=== PATIENT | male | born 1965 | race African-American/Black ===

== ENCOUNTER 2018-02-18 20:16 | Inpatient (IN) | payer OTHER ==
[2018-02-18 21:05] VITALS: BMI 20.5
--- NOTE | 2018-02-18 22:03 | HP ---
CIWA Score - CIWA Score Nausea/Vomitin-Mild Nausea/No Vomiting Muscle Tremors: 1-None Visible, but [place] Anxiety: 1-Mildly Anxious Agitation: 0-Normal Activity Paroxysmal Sweats: 3 Orientation: 0-Oriented Tacttile Disturbances: 3-Moderate Itch/Numb/Burn Auditory Disturbances: 0-None Visual Disturbances: 0-None Headache: 4-Moderately Severe CIWA-Ar Total Score: 13 Admission [facility] Chief Complaint: C/O WITHDRAWAL SX'S FROM ALCOHOL ABSTINENCE. SEEKING DETOX History of Present Illness: 52 Y.O. MALE WITH ALCOHOLISM HERE FOR DETOX. CLIENT IS REFERRED BY A WORK PROGRAM CALLED [employer]. HE REPORTS THIS IS HIS FIRST TIME IN AN INPATIENT TXMENT. HE ALSO DENIES OUTPATIENT TXMENT. C/O WITHDRAWAL SX'S. CIWA 13. REPORTS LONGEST STERLING TIME 2 YEARS. REPORTS HX/O AVH CURRENTLY ON MEDICATION MGMT. PRESENTLY DENIES ACTIVE EPISODES.HE ALSO REPORTS HX/O SEIZURES LAST EPISODE FEW YEARS AGO R/T ALCOHOL WITHDRAWAL, BLACK OUTS.HX/O SI LAST ATTEMPT 5 YEARS AGO BY CUTTING WRIST. PRESENTLY DENIES SUCH THOUGHTS HE REPORTS THAT HE IS PRESENTLY HOMELESS. PMHX- HEP B, HTN, HEART MURMUR, OA, DM, COLITIS, ANEMIA PSYCH- DEPRESSION, BIPOLAR, SCHIZOPHRENIA, ECZEMA Exam Limitations: No Limitations - Ebola screening Have you traveled outside of the country in the last 21 days: No (N) Have you had contact with anyone from an Ebola affected area: No Have you been sick,other than usual withdrawal symptoms: No Do you have a fever: No - Review of Systems Constitutional: Chills, Loss of Appetite, Malaise, Night Sweats, Changes in sleep, Unintentional Wgt. Loss EENT: reports: Recent change in vision (NEEDS READING GLASSES), Dental Problems (MISSING TEETH) Respiratory: reports: No Symptoms reported Cardiac: reports: No Symptoms Reported GI: reports: Constipated (LAST BM 1 WEEK AGO), Nausea, Poor Appetite, Poor Fluid Intake : reports: No Symptoms Reported Musculoskeletal: reports: Back Pain (R/T OA), Joint Pain (R/T OA), Neck Pain (R/ T OA) Integumentary: reports: Rash (ECZEMAS) Neuro: reports: Headache (MIGRAINES), Seizure (HX/O R/T WEITHDRAWAL), Tremors (R /T WITHDRAWAL) Endocrine: reports: Other (HX/O DM) Hematology: reports: No Symptoms Reported Psychiatric: reports: Depressed, other (BIPOALR, SCHIZOPHRENIA) Other Systems: Reviewed and Negative Patient History - Patient Medical History Hx Anemia: Yes Hx Asthma: No Hx Chronic Obstructive Pulmonary Disease (COPD): Yes (BRONCHITIS) Hx Cancer: No Hx Cardiac Disorders: Yes (MURMUR) Hx Congestive Heart Failure: No Hx Hypertension: Yes Hx Hypercholesterolemia: Yes Hx Pacemaker: No HX Cerebrovascular Accident: No Hx Seizures: Yes (ETOH WITHDRAWAL) Hx Dementia: No Hx Diabetes: Yes Hx Gastrointestinal Disorders: Yes (COLITIS) Hx Liver Disease: Yes (ELEVATED ENZYMES/ HEP B TREATED) Hx Genitourinary Disorders: No Hx Sexually Transmitted Disorders: No Hx Renal Disease (ESRD): No Hx Thyroid Disease: No Hx Human Immunodeficiency Virus (HIV): No Hx Hepatitis C: No Hx Depression: Yes Hx Suicide Attempt: Yes (LAST ATTMEPT 5 YEARS AGO BY CUTTING WRIST) Hx Bipolar Disorder: Yes Hx Schizophrenia: Yes - Patient Surgical History Past Surgical History: No - PPD History Previous Implant?: Yes Documented Results: Negative w/o proof Implanted On Prior [facility] Admission?: No PPD to be Administered?: Yes - Smoking Cessation Smoking history: Current every day smoker Have you smoked in the past 12 months: Yes Aproximately how many cigarettes per day: 10 Cigars Per Day: 0 Hx Chewing Tobacco Use: No Initiated information on smoking cessation: Yes 'Breaking Loose' booklet given: 02/18/18 - Substance & Tx. History Hx Alcohol Use: Yes Hx Substance Use: Yes Substance Use Type: Alcohol, Cocaine, Marijuana Hx Substance Use Treatment: No - Substances Abused BEER Route: Oral Frequency: Daily Amount used: 12 CANS- 12 OZ Age of first use: 10 Date of Last Use: 02/18/18 THC Route: Smoking Frequency: Daily Amount used: 2 EIGHT BALLS Age of first use: 6 Date of Last Use: 02/18/18 COCAINE Route: Smoking Frequency: 3-6 times per week Amount used: 1 GM Age of first use: 20 Date of Last Use: 02/18/18 Family Disease History - Family Disease History Family Disease History: Heart Disease: Father (DRUG ADDICT, HTN), Other: Father , Mother (SCHIZOPHRENIA) Admission Physical Exam BHS - Vital Signs Vital Signs: Vital Signs - 24 hr 02/18/18 21:02 Temperature 98.1 F Pulse Rate 90 Respiratory 18 Rate Blood Pressure 157/87 - Physical General Appearance: Yes: Appropriately Dressed, Thin, Tremorous HEENTM: Yes: EOMI, Normocephalic, Normal Voice, CHAPITO, Pharynx Normal, Other ( POOR DENTITION) Respiratory: Yes: Chest Non-Tender, No Respiratory Distress, No Accessory Muscle Use, Rhonchi Neck: Yes: No masses,lesions,Nodules, Supple, Trachea in good position Breast: Yes: Breast Exam Deferred Cardiology: Yes: Regular Rhythm, Regular Rate, S1, S2 Abdominal: Yes: Normal Bowel Sounds, Non Tender, Flat, Soft Genitourinary: Yes: Other (NO C/O) Back: Yes: Normal Inspection Musculoskeletal: Yes: full range of Motion, Gait Steady Extremities: Yes: Normal Range of Motion, Non-Tender, Tremors (FELT), Other ( DIRT FINGER NAILS UNKEPT) Neurological: Yes: Fully Oriented, Alert, Motor Strength 5/5, Depressed Affect Integumentary: Yes: Warm Lymphatic: Yes: Within Normal Limits - Diagnostic (1) Alcohol dependence with uncomplicated withdrawal Current Visit: Yes Status: Acute (2) HTN (hypertension) Current Visit: Yes Status: Suspected Qualifiers: Hypertension type: essential hypertension Qualified Code(s): I10 - Essential (primary) hypertension Comment: NO MED MGMT (3) Diabetes Current Visit: Yes Status: Suspected Qualifiers: Diabetes mellitus type: type 2 Comment: NO MED MGMT (4) History of anemia Current Visit: Yes Status: Suspected (5) History of hepatitis B Current Visit: Yes Status: Resolved (6) Colitis Current Visit: Yes Status: Suspected (7) Murmur Current Visit: Yes Status: Suspected (8) Primary generalized (osteo)arthritis Current Visit: Yes Status: Chronic (9) Depression Current Visit: Yes Status: Suspected (10) Bipolar 1 disorder Current Visit: Yes Status: Suspected (11) Schizophrenia Current Visit: Yes Status: Suspected (12) Constipation Current Visit: Yes Status: Acute (13) Eczema Current Visit: Yes Status: Chronic Qualifiers: Eczema type: unspecified Qualified Code(s): L30.9 - Dermatitis, unspecified Cleared for Admission BHS - Detox or Rehab S Level of Care: Medically Managed Detox Regimen/Protocol: Librium Claeared for Rehab Admission: No BHS Breath Alcohol Content Breath Alcohol Content: 0 Urine Drug Screen - Results Drug Screen Negative: No Urine Drug Screen Results: THC-Marijuana, TIRSO-Cocaine
[2018-02-18] MEDS ORDERED: MAG HYDROX/AL HYDROX/SIMETH 30 ML UNIT-DOSE CUP PO PRN (22:25)
[2018-02-18] MEDS ORDERED: MAGNESIUM CITRATE 300 ML BOTTLE PO PRN (22:25)
[2018-02-18] MEDS ORDERED: hydrOXYzine PAMOATE 50 MG CAPSULE (FP) PO PRN (22:25)
[2018-02-18] MEDS ORDERED: chlordiazePOXIDE HCL 25 MG CAPSULE PO PRN (22:25)
[2018-02-18] MEDS ORDERED: ACETAMINOPHEN 325 MG TABLET (FP) PO PRN (22:25)
[2018-02-18] MEDS ORDERED: NICOTINE POLACRILEX 2 MG GUM BC PRN (22:25)
[2018-02-18] MEDS ORDERED: LOPERAMIDE HCL 2 MG CAPSULE PO PRN (22:25)
[2018-02-18] MEDS ORDERED: MAGNESIUM HYDROX 2400MG/30ML ORAL SUSPENSION 30 ML CUP PO PRN (22:25)
[2018-02-18] MEDS ORDERED: P-EPHED 60MG/TRIPROLIDI 2.5MG TABLET PO PRN (22:25)
[2018-02-19] MEDS: MENTHOL/PHENOL 1 EACH UD MM PRN (00:35)
[2018-02-19] MEDS: guaiFENesin/D-METHORPHAN HB 10 ML UNIT-DOSE CUPS PO PRN (00:35)
[2018-02-19] MEDS: MELATONIN 5 MG TABLETS PO PRN (00:36)
[2018-02-19] MEDS: chlordiazePOXIDE HCL 25 MG CAPSULE PO SCH ×5 (00:54→22:39)
[2018-02-19] MEDS: PRENATAL VITAMINS W/ FOLIC ACID TABLET (FP) PO SCH (10:08)
[2018-02-19] MEDS: NICOTINE 21 MG/24 HOURS TOPICAL PATCH TD SCH (10:08)
[2018-02-19 10:25] LABS: HEMATOCRIT 30.7 % (35.4-49); HEMOGLOBIN 10.6 GM/dL (11.7-16.9); MCH 32.4 pg (25.7-33.7); MCHC 34.4 g/dl (32.0-35.9); MEAN CELL VOLUME 94.2 fl (80-96); MEAN PLT VOLUME 8.7 fl (7.5-11.1); PLATELET COUNT 205 K/MM3 (134-434); RBC 3.26 M/mm3 (4.00-5.60); RDW 14.9 % (11.9-15.9); WHITE BLOOD COUNT 6.9 K/mm3 (4.0-10.0)
[2018-02-19 10:57] LABS: ALBUMIN 3.3 g/dl (3.4-5.0); ALK PHOS 85 U/L (45-117); ANION GAP 9 MMOL/L (8-16); BILIRUBIN,TOTAL 0.4 mg/dL (0.2-1); BLOOD UREA NITROGEN 30 mg/dL (7-18); CALCIUM 8.5 mg/dL (8.5-10.1); CHLORIDE 110 mmol/L (98-107); CO2 22 mmol/L (21-32); CREATININE 1.8 mg/dL (0.55-1.3); GLUCOSE,RANDOM 87 mg/dL (74-106); POTASSIUM 4.7 mmol/L (3.5-5.1); SGOT/AST 25 U/L (15-37); SGPT/ALT 31 U/L (13-61); SODIUM 141 mmol/L (136-145); TOT PROT 6.2 g/dl (6.4-8.2)
--- NOTE | 2018-02-19 14:31 | PN ---
[facility] CIWA - CIWA Score Nausea/Vomitin-No Nausea/No Vomiting Muscle Tremors: 2 Anxiety: 3 Agitation: 3 Paroxysmal Sweats: 3 Orientation: 0-Oriented Tacttile Disturbances: 1-Very Mild Itch/Numbness Auditory Disturbances: 0-None Visual Disturbances: 0-None Headache: 1-Very Mild CIWA-Ar Total Score: 13 S Progress Note (SOAP) Subjective: dry skin, interrupted sleep, anxious Objective: 02/19/18 14:29 Vital Signs Temperature 97.4 F L 02/19/18 14:20 Pulse Rate 67 02/19/18 14:20 Respiratory Rate 18 02/19/18 14:20 Blood Pressure 153/90 02/19/18 14:20 O2 Sat by Pulse Oximetry (%) Laboratory Last Values WBC 6.9 K/mm3 (4.0-10.0) 02/19/18 08:00 RBC 3.26 M/mm3 (4.00-5.60) L 02/19/18 08:00 Hgb 10.6 GM/dL (11.7-16.9) L 02/19/18 08:00 Hct 30.7 % (35.4-49) L 02/19/18 08:00 MCV 94.2 fl (80-96) 02/19/18 08:00 MCH 32.4 pg (25.7-33.7) 02/19/18 08:00 MCHC 34.4 g/dl (32.0-35.9) 02/19/18 08:00 RDW 14.9 % (11.9-15.9) 02/19/18 08:00 Plt Count 205 K/MM3 (134-434) 02/19/18 08:00 MPV 8.7 fl (7.5-11.1) 02/19/18 08:00 Sodium 141 mmol/L (136-145) 02/19/18 08:00 Potassium 4.7 mmol/L (3.5-5.1) 02/19/18 08:00 Chloride 110 mmol/L (98-107) H 02/19/18 08:00 Carbon Dioxide 22 mmol/L (21-32) 02/19/18 08:00 Anion Gap 9 MMOL/L (8-16) 02/19/18 08:00 BUN 30 mg/dL (7-18) H 02/19/18 08:00 Creatinine 1.8 mg/dL (0.55-1.3) H 02/19/18 08:00 Creat Clearance w eGFR 39.52 (>60) 02/19/18 08:00 POC Glucometer 108 UNITS (80-120) 02/19/18 07:21 Random Glucose 87 mg/dL (74-106) 02/19/18 08:00 Calcium 8.5 mg/dL (8.5-10.1) 02/19/18 08:00 Total Bilirubin 0.4 mg/dL (0.2-1) 02/19/18 08:00 AST 25 U/L (15-37) 02/19/18 08:00 ALT 31 U/L (13-61) 02/19/18 08:00 Alkaline Phosphatase 85 U/L (45-117) 02/19/18 08:00 Total Protein 6.2 g/dl (6.4-8.2) L 02/19/18 08:00 Albumin 3.3 g/dl (3.4-5.0) L 02/19/18 08:00 RPR Titer Nonreactive (NONREACTIVE) 02/19/18 08:00 Ao x3 no distress no adventitious breathe sounds skin intact, dry full ROM ambulatory Assessment: 02/19/18 14:30 withdrawal sx Plan: increase po fluids continue detox continue to monitor
--- NOTE | 2018-02-19 15:15 | CONSULT ---
[facility] Psychiatric Consult - Data Date of interview: 02/19/18 Admission source: [facility]. Referred by [facility]. Identifying data: First admission to [facility] for this 52 y/o AA male seeking detoxification treatment, at [address] [place] [address], for alcohol, cocaine and cannabis dependence. Patient is single without dependents, homeless, unemployed and supported on SSI/SSD benefits. Substance Abuse History: Confirmed by the patient in this interview. Details in current [facility] report : Smoking history: Current every day smoker. Have you smoked in the past 12 months: Yes. Aproximately how many cigarettes per day: 10. Cigars Per Day: 0. Hx Chewing Tobacco Use: No. Initiated information on smoking cessation: Yes. 'Breaking Loose' booklet given: 02/18/18. - Substance & Tx. History. Hx Alcohol Use: Yes. Hx Substance Use: Yes. Substance Use Type : Alcohol, Cocaine, Marijuana. Hx Substance Use Treatment: No. - Substances Abused. BEER. Route: Oral. Frequency: Daily. Amount used: 12 CANS- 12 OZ. Age of first use: 10. Date of Last Use: 02/18/18. THC. Route: Smoking. Frequency: Daily. Amount used: 2 EIGHT BALLS. Age of first use: 6. Date of Last Use: 02/18/18. COCAINE. Route: Smoking. Frequency: 3-6 times per week. Amount used: 1 GM. Age of first use: 20. Date of Last Use: 02/18/18 Medical History: Anemia, eczema, colitis, hypertension, hepatitis B, arthritis, heart murmur and diabetes mellitus. Reported allergy to metformin. Psychiatric History: Patient admits to one psychiatric hospitalization ([facility]). Diagnosed with Bipolar Disorder. Prescribed a regimen of haldol + depakote + seroquel + trazodone (doses not recalled). Last taken " more than a week ago ". No current contact with psychiatric OPD care providers. " I have refills for three months. " Mr Horn reports one suicide attempt via wrist-cutting (six years ago). Physical/Sexual Abuse/Trauma History: Patient denies. Additional Comment: Urine Drug Screen Results: THC-Marijuana, TIRSO-Cocaine. Noted. Mental Status Exam - Mental Status Exam Alert and Oriented to: Time, Place, Person Cognitive Function: Grossly Intact Patient Appearance: Unkempt, Disheveled Mood: Nervous, Withdrawn Affect: Mood Congruent, Constricted Patient Behavior: Fatigued, Cooperative Speech Pattern: Clear Voice Loudness: Normal Thought Process: Goal Oriented Thought Disorder: Not Present Hallucinations: Denies Suicidal Ideation: Denies Homicidal Ideation: Denies Insight/Judgement: Poor Sleep: Poorly, Difficulty falling asleep Appetite: Good Muscle strength/Tone: Normal Gait/Station: Other (not observed ; patient stayed in bed for entire interview) Psychiatric Findings - Problem List ([place] 1, 2,3) (1) Alcohol dependence with uncomplicated withdrawal Current Visit: Yes Status: Acute (2) Cannabis dependence Current Visit: Yes Status: Chronic (3) Cocaine dependence Current Visit: Yes Status: Chronic (4) Nicotine dependence Current Visit: Yes Status: Chronic (5) Substance induced mood disorder Current Visit: Yes Status: Acute (6) Schizoaffective disorder Current Visit: Yes Status: Chronic (7) Insomnia Current Visit: Yes Status: Acute (8) Non-compliant patient Current Visit: Yes Status: Chronic - Initial Treatment Plan Initial Treatment Plan: Psychoeducation. Sleep hygiene. Detoxification. Psychotherapy (group,individual and supportive). AA/NA meeting recommended. Medications (with the exception of detox protocol agents) are on hold pending verification (no pharmacy listed on file). Observation.
[2018-02-19] MEDS: DOCUSATE SODIUM 100 MG CAPSULE (FP) PO SCH (22:40)
[2018-02-19] MEDS: THIAMINE HCL 100 MG TABLET (FP) PO SCH (22:40)
[2018-02-20] MEDS: chlordiazePOXIDE HCL 25 MG CAPSULE PO SCH ×3 (06:10→17:41)
[2018-02-20] MEDS: PRENATAL VITAMINS W/ FOLIC ACID TABLET (FP) PO SCH (10:19)
[2018-02-20] MEDS: NICOTINE 21 MG/24 HOURS TOPICAL PATCH TD SCH (10:19)
--- NOTE | 2018-02-20 11:36 | EKG ---
Test Reason : Blood Pressure : / mmHG Vent. Rate : 079 BPM Atrial Rate : 079 BPM P-R Int : 128 ms QRS Dur : 074 ms QT Int : 372 ms P-R-T Axes : 074 -39 053 degrees QTc Int : 426 ms NORMAL SINUS RHYTHM LEFT AXIS DEVIATION ABNORMAL ECG NO PREVIOUS ECGS AVAILABLE Confirmed by TAM CASTORENA MD ([id number]) on 02/20/2018 11:36:13 AM Referred By: Confirmed By:TAM CASTORENA MD
[2018-02-20] MEDS: IBUPROFEN 400 MG TABLET (FP) PO PRN (14:15)
--- NOTE | 2018-02-20 15:20 | PN ---
S CIWA - CIWA Score Nausea/Vomitin Muscle Tremors: 3 Anxiety: 4-Mod. Anxious/Guarded Agitation: 4-Moderately Restless Paroxysmal Sweats: 2 Orientation: 0-Oriented Tacttile Disturbances: 0-None Auditory Disturbances: 0-None Visual Disturbances: 0-None Headache: 0-None Present CIWA-Ar Total Score: 15 BHS Progress Note (SOAP) Subjective: Tremor, chills, interrupted sleep; c/o constipation (no bm x 1 week and severe abdominal pain). Patient stated he has ulcerative colitis and usually received morphine IV. As per patient, he is not on any medication for ulcerative colitis. Patient reports pmhx of DMT2, HTN, Hepatitis B, Nicotine dependence, alcohol dependence, cocaine dependence;pphx of depression, bipolar disorder and schizophrenia. Patient has been non compliant with medications. Patient reports allergy to metformin (rash and sweating). Objective: 02/20/18 15:19 Last Vital Signs Temp Pulse Resp BP Pulse Ox 97.6 F 90 18 189/128 H 02/20/18 13:50 02/20/18 14:55 02/20/18 13:50 02/20/18 14:55 B/P elevated most likely due to pain and anxiety PE: Resp: lungs ctab/l, no added breath sounds CV: rrr, s1s2+ Abd: + bs x 4, no rebound tenderness, soft, flat, nd Neuro: A/A/Ox3, noted to be groaning and twisting Laboratory Tests 02/18/18 02/19/18 02/19/18 23:14 07:21 08:00 WBC 6.9 RBC 3.26 L Hgb 10.6 L Hct 30.7 L MCV 94.2 MCH 32.4 MCHC 34.4 RDW 14.9 Plt Count 205 MPV 8.7 Sodium Potassium Chloride Carbon Dioxide Anion Gap BUN Creatinine Creat Clearance w eGFR POC Glucometer 230 108 Random Glucose Calcium Total Bilirubin AST ALT Alkaline Phosphatase Total Protein Albumin RPR Titer 02/19/18 02/19/18 02/20/18 08:00 08:00 06:10 WBC RBC Hgb Hct MCV MCH MCHC RDW Plt Count MPV Sodium 141 Potassium 4.7 Chloride 110 H Carbon Dioxide 22 Anion Gap 9 BUN 30 H Creatinine 1.8 H Creat Clearance w eGFR 39.52 POC Glucometer 93 Random Glucose 87 Calcium 8.5 Total Bilirubin 0.4 AST 25 ALT 31 Alkaline Phosphatase 85 Total Protein 6.2 L Albumin 3.3 L RPR Titer Nonreactive Labs reviewed: ARTURO noted Assessment: 02/20/18 15:20 Withdrawal symptoms Patient c/o constipation x 1 week and severe abdominal pain due to ulcerative colitis, noted with ARTURO Plan: Continue detox Constipation x 1 week and severe abdominal pain due to ulcerative colitis, noted with ARTURO: transferred to [facility] via EMS for further evaluation. Report provided to Dr. Bridges by BRIDGET Reich (feature writer called ER and was told that the already took report and is expecting the patient).
[2018-02-20 17:32] LABS: URINE APPEARANCE CLEAR; URINE BILIRUBIN NEGATIVE (<2.0 mg/dL); URINE COLOR LTYELLOW; URINE GLUCOSE (UA) NEGATIVE (NEGATIVE); URINE KETONE NEGATIVE (NEGATIVE); URINE LEUK ESTERASE NEGATIVE (NEGATIVE); URINE NITRITE NEGATIVE (NEGATIVE); URINE PROTEIN NEGATIVE (NEGATIVE); URINE UROBILINOGEN NEGATIVE mg/dL (0.2-1.0)
[2018-02-20] MEDS: DOCUSATE SODIUM 100 MG CAPSULE (FP) PO SCH (22:43)
[2018-02-20] MEDS: THIAMINE HCL 100 MG TABLET (FP) PO SCH (22:43)
[2018-02-20] MEDS: chlordiazePOXIDE 5 MG CAPSULE PO SCH (23:21)
[2018-02-21] MEDS ORDERED: cloNIDine HCL 0.1 MG TABLET PO ONE (00:39)
[2018-02-21] MEDS: chlordiazePOXIDE 5 MG CAPSULE PO SCH ×3 (06:08→17:59)
--- NOTE | 2018-02-21 08:08 | PN ---
[facility] Progress Note Note: returns after er eval aT [facility] FOR ABD PAIN STOOL NOTED IN COLON LACTULOSE GIVEN. P- LACTULOSE 20 GM DAILY X3 DAYS MONITOR/ HOLD FOR LOOSE STOOL Medical Decision Making - Medical Decision Making 02/20/18 20:05 Endorsed to me to follow CT scan and disposition. Patient seen and evaluated requesting to have a sandwich. 02/20/18 21:42 Patient Full Name: ARAM DUMONT Patient Accession No: [id number] Patient : 1965 Reason for Exam: r/o colitis Addenda Reason: Dr. Leiva on the line Referring Physician: JOSUE HU Patient Name: TIM CHIU THIS IS A PRELIMINARY REPORT FROM [facility] EXAM: CT abdomen and pelvis without contrast IMAGES:[id number] DATE OF EXAM: 2018-02-20 19:07:54 REASON FOR EXAM: Rule out colitis COMPARISON: None Findings: 3-4 mm nodules in the right middle lobe. Mild atelectasis and scarring in lung bases. No pleural effusions. Small hiatal hernia. The liver, gallbladder, pancreas, adrenal glands, and spleen are grossly unremarkable. Faint small left renal cyst. Punctate 1 mm nonobstructing left renal calcification. No ureteral calculi or hydronephrosis. No AAA. Moderate stool in the colon. No obvious colon wall thickening or inflammatory changes to suggest colitis. No evidence for diverticulitis, small bowel obstruction, or free air. Part of a normal appendix with intraluminal gas is suspected on axial images 84- 93 and coronal images 38-55. One or more of the following dose reduction techniques were used: automated exposure control, adjustment of the mA and/or kV according to patient size, use of iterative reconstructive technique. THIS DOCUMENT HAS BEEN ELECTRONICALLY SIGNED Chu Mcgrath MD 02/20/2018 21:09 B[place]O Love Please call Imaging Family Member Caretaker [phone] with questions. INTERPRETING RADIOLOGIST: Chu Mcgrath MD Electronically Signed: Feb 20, 2018 09:11PM EST CT scan report discussed with the patient as above. Patient tolerating by mouth, ate sandwich and juice without complications. Will transfer to [facility]. 02/20/18 22:07 Patient given lactulose 30 g by mouth. *DC/Admit/Observation/Transfer Diagnosis at time of Disposition: Abdominal pain Qualifiers: Abdominal location: unspecified location Qualified Code(s): R10.9 - Unspecified abdominal pain Constipation Qualifiers: Constipation type: unspecified constipation type Qualified Code(s): K59.00 - Constipation, unspecified - Discharge Dispostion Disposition: TRANSFER [facility] CARE/OTHER HOSP - Referrals - Patient Instructions - Post Discharge Activity - Transfer to Acute Care Facility Receiving Facility: Other hosp. not listed Transfer comment: 02/20/18 22:10 Transferred to [facility] 3 N.
[2018-02-21] MEDS: PRENATAL VITAMINS W/ FOLIC ACID TABLET (FP) PO SCH (10:38)
[2018-02-21] MEDS: NICOTINE 21 MG/24 HOURS TOPICAL PATCH TD SCH (10:38)
[2018-02-21] MEDS: LACTULOSE 20 GM/30 ML UDC (FOR ORAL USE ONLY) PO SCH (10:38)
--- NOTE | 2018-02-21 14:32 | PN ---
[facility] Progress Note (SOAP) Subjective: Sweating, interrupted sleep. Patient stated he had a bm this morning. Objective: 02/21/18 14:30 Last Vital Signs Temp Pulse Resp BP Pulse Ox 97.0 F L 72 18 149/94 02/21/18 13:29 02/21/18 13:29 02/21/18 13:29 02/21/18 13:29 Laboratory Tests 02/18/18 02/19/18 02/19/18 23:14 07:21 08:00 WBC 6.9 RBC 3.26 L Hgb 10.6 L Hct 30.7 L MCV 94.2 MCH 32.4 MCHC 34.4 RDW 14.9 Plt Count 205 MPV 8.7 Sodium Potassium Chloride Carbon Dioxide Anion Gap BUN Creatinine Creat Clearance w eGFR POC Glucometer 230 108 Random Glucose Calcium Total Bilirubin AST ALT Alkaline Phosphatase Total Protein Albumin Urine Color Urine Appearance Urine pH Ur Specific [place] Urine Protein Urine Glucose (UA) Urine Ketones Urine Blood Urine Nitrite Urine Bilirubin Urine Urobilinogen Ur Leukocyte Esterase RPR Titer 02/19/18 02/19/18 02/20/18 08:00 08:00 06:10 WBC RBC Hgb Hct MCV MCH MCHC RDW Plt Count MPV Sodium 141 Potassium 4.7 Chloride 110 H Carbon Dioxide 22 Anion Gap 9 BUN 30 H Creatinine 1.8 H Creat Clearance w eGFR 39.52 POC Glucometer 93 Random Glucose 87 Calcium 8.5 Total Bilirubin 0.4 AST 25 ALT 31 Alkaline Phosphatase 85 Total Protein 6.2 L Albumin 3.3 L Urine Color Urine Appearance Urine pH Ur Specific [place] Urine Protein Urine Glucose (UA) Urine Ketones Urine Blood Urine Nitrite Urine Bilirubin Urine Urobilinogen Ur Leukocyte Esterase RPR Titer Nonreactive 02/20/18 02/21/18 13:55 06:07 WBC RBC Hgb Hct MCV MCH MCHC RDW Plt Count MPV Sodium Potassium Chloride Carbon Dioxide Anion Gap BUN Creatinine Creat Clearance w eGFR POC Glucometer 111 Random Glucose Calcium Total Bilirubin AST ALT Alkaline Phosphatase Total Protein Albumin Urine Color Ltyellow Urine Appearance Clear Urine pH 6.0 Ur Specific [place] 1.012 Urine Protein Negative Urine Glucose (UA) Negative Urine Ketones Negative Urine Blood Negative Urine Nitrite Negative Urine Bilirubin Negative Urine Urobilinogen Negative Ur Leukocyte Esterase Negative RPR Titer Labs reviewed Assessment: 02/21/18 14:31 Withdrawal symptoms Plan: Continue detox ARTURO: encouraged PO water intake, follow up with PCP for further management Patient was seen yesterday at [facility] due to abdominal pain and had CT scan of abdomen and pelvis without contrast done which was negative for colitis and showed moderate stool in colon. Patient ordered for lactulose and reported having BM this morning. Patient instructed to follow up with his PCP after discharge for futher monitoring.
--- NOTE | 2018-02-21 17:41 | PN ---
[facility] Progress Note Note: Psychiatry Attending's follow-up note : Met with patient. Has no information about pharmacy. No recall of date of last intake of medications. Still maintains that he has refills from his psychiatrist. Observed as appropriate, well controlled and neatly groomed. Asymptomatic. Baseline. Scheduled for discharge in the morning. Mr Horn declares that he will follow with his psychiatrist. NO scripts needed from [facility].
[2018-02-21] MEDS: MENTHOL/PHENOL 1 EACH UD MM PRN (18:01)
[2018-02-21] MEDS: guaiFENesin/D-METHORPHAN HB 10 ML UNIT-DOSE CUPS PO PRN (18:01)
[2018-02-21] MEDS: DOCUSATE SODIUM 100 MG CAPSULE (FP) PO SCH (22:53)
[2018-02-21] MEDS: chlordiazePOXIDE HCL 10 MG CAPSULE PO SCH (22:54)
[2018-02-21] MEDS: THIAMINE HCL 100 MG TABLET (FP) PO SCH (22:54)
[2018-02-22] MEDS: chlordiazePOXIDE HCL 10 MG CAPSULE PO SCH ×2 (06:05→10:13)
[2018-02-22] MEDS: guaiFENesin/D-METHORPHAN HB 10 ML UNIT-DOSE CUPS PO PRN (06:22)
[2018-02-22] MEDS: MENTHOL/PHENOL 1 EACH UD MM PRN (06:22)
[2018-02-22] MEDS: PRENATAL VITAMINS W/ FOLIC ACID TABLET (FP) PO SCH (10:10)
[2018-02-22] MEDS: NICOTINE 21 MG/24 HOURS TOPICAL PATCH TD SCH (10:13)
[2018-02-22] MEDS: LACTULOSE 20 GM/30 ML UDC (FOR ORAL USE ONLY) PO SCH (10:13)
--- NOTE | 2018-02-22 12:21 | DS ---
[facility] Detox Discharge Summary Admission Date: 02/18/18 Discharge Date: 02/22/18 - History Present History: Alcohol Dependence Additional Comments: Patient was sent out to [facility] ER on Wednesday for evaluation due to c/o severe abdominal pain due to colitis as per patient. CT scan of abdomen and pelvis was done which showed moderate stool in colon without any colitis. Patient placed on lactulose. Patient instructed to follow up with his PCP post discharge within 1 week. Pertinent Past History: Alcohol dependence Constipation OA DMT2 HTN ARTURO Ulcerative colitis?? (not shown on CT scan) - Physical Exam Results Vital Signs: Vital Signs Temperature 98.1 F 02/22/18 09:27 Pulse Rate 73 02/22/18 09:27 Respiratory Rate 18 02/22/18 09:27 Blood Pressure 150/89 02/22/18 09:27 O2 Sat by Pulse Oximetry (%) Pertinent Admission Physical Exam Findings: Withdrawal symptoms Laboratory Tests 02/18/18 02/19/18 02/19/18 23:14 07:21 08:00 WBC 6.9 RBC 3.26 L Hgb 10.6 L Hct 30.7 L MCV 94.2 MCH 32.4 MCHC 34.4 RDW 14.9 Plt Count 205 MPV 8.7 Sodium Potassium Chloride Carbon Dioxide Anion Gap BUN Creatinine Creat Clearance w eGFR POC Glucometer 230 108 Random Glucose Calcium Total Bilirubin AST ALT Alkaline Phosphatase Total Protein Albumin Urine Color Urine Appearance Urine pH Ur Specific [place] Urine Protein Urine Glucose (UA) Urine Ketones Urine Blood Urine Nitrite Urine Bilirubin Urine Urobilinogen Ur Leukocyte Esterase RPR Titer 02/19/18 02/19/18 02/20/18 08:00 08:00 06:10 WBC RBC Hgb Hct MCV MCH MCHC RDW Plt Count MPV Sodium 141 Potassium 4.7 Chloride 110 H Carbon Dioxide 22 Anion Gap 9 BUN 30 H Creatinine 1.8 H Creat Clearance w eGFR 39.52 POC Glucometer 93 Random Glucose 87 Calcium 8.5 Total Bilirubin 0.4 AST 25 ALT 31 Alkaline Phosphatase 85 Total Protein 6.2 L Albumin 3.3 L Urine Color Urine Appearance Urine pH Ur Specific [place] Urine Protein Urine Glucose (UA) Urine Ketones Urine Blood Urine Nitrite Urine Bilirubin Urine Urobilinogen Ur Leukocyte Esterase RPR Titer Nonreactive 02/20/18 02/21/18 02/22/18 13:55 06:07 06:22 WBC RBC Hgb Hct MCV MCH MCHC RDW Plt Count MPV Sodium Potassium Chloride Carbon Dioxide Anion Gap BUN Creatinine Creat Clearance w eGFR POC Glucometer 111 110 Random Glucose Calcium Total Bilirubin AST ALT Alkaline Phosphatase Total Protein Albumin Urine Color Ltyellow Urine Appearance Clear Urine pH 6.0 Ur Specific [place] 1.012 Urine Protein Negative Urine Glucose (UA) Negative Urine Ketones Negative Urine Blood Negative Urine Nitrite Negative Urine Bilirubin Negative Urine Urobilinogen Negative Ur Leukocyte Esterase Negative RPR Titer Labs reviewed - Treatment Hospital Course: Detox Protocol Followed, Detoxed Safely, Responded well, Discharged Condition Good - Medication Discharge Medications: Ambulatory Orders Benztropine Mesylate [Cogentin -] 0.5 mg PO DAILY 02/18/18 Divalproex Sodium [Depakote] 250 mg PO BID 02/18/18 Haloperidol [Haldol -] 5 mg PO BID 02/18/18 traZODone HCL [Trazodone HCl] 100 mg PO DAILY 02/18/18 - Diagnosis (1) ARTURO (acute kidney injury) Current Visit: Yes Status: Acute (2) Type 2 diabetes mellitus Current Visit: Yes Status: Chronic (3) Ulcerative colitis Current Visit: Yes Status: Chronic (4) Alcohol dependence with uncomplicated withdrawal Current Visit: Yes Status: Acute (5) Constipation Current Visit: No Status: Chronic Qualifiers: Constipation type: unspecified constipation type Qualified Code(s): K59.00 - Constipation, unspecified (6) Primary generalized (osteo)arthritis Current Visit: Yes Status: Chronic (7) HTN (hypertension) Current Visit: Yes Status: Chronic Qualifiers: Hypertension type: essential hypertension Qualified Code(s): I10 - Essential (primary) hypertension (8) Cannabis dependence Current Visit: Yes Status: Chronic (9) Cocaine dependence Current Visit: Yes Status: Chronic (10) Nicotine dependence Current Visit: Yes Status: Chronic - AMA Did Patient Leave Against Medical Advice: No (F/U with your PCP within 1 week)
[2018-02-22] MEDS: IBUPROFEN 400 MG TABLET (FP) PO PRN (19:57)
[2018-02-22] MEDS: MELATONIN 5 MG TABLETS PO PRN (22:07)
[2018-02-22] MEDS: THIAMINE HCL 100 MG TABLET (FP) PO SCH (22:07)
[2018-02-22] MEDS: DOCUSATE SODIUM 100 MG CAPSULE (FP) PO SCH (22:08)
[2018-02-23] MEDS: IBUPROFEN 400 MG TABLET (FP) PO PRN ×2 (06:13→17:55)
[2018-02-23] MEDS: PRENATAL VITAMINS W/ FOLIC ACID TABLET (FP) PO SCH (09:57)
[2018-02-23] MEDS: NICOTINE 21 MG/24 HOURS TOPICAL PATCH TD SCH (09:57)
[2018-02-23] MEDS: LACTULOSE 20 GM/30 ML UDC (FOR ORAL USE ONLY) PO SCH (09:57)
--- NOTE | 2018-02-23 11:50 | PN ---
[facility] Progress Note Note: Pt c/o back pain- chronic back pain. Also states that he has chronic anemia- was never worked up for this. Was seen recently at [facility] for abd pain- eval neg. Laboratory Tests LAbs: HCt 30, Cr 1.8, decreased GFR 02/18/18 02/19/18 02/19/18 23:14 07:21 08:00 WBC 6.9 RBC 3.26 L Hgb 10.6 L Hct 30.7 L MCV 94.2 MCH 32.4 MCHC 34.4 RDW 14.9 Plt Count 205 MPV 8.7 Sodium Potassium Chloride Carbon Dioxide Anion Gap BUN Creatinine Creat Clearance w eGFR POC Glucometer 230 108 Random Glucose Calcium Total Bilirubin AST ALT Alkaline Phosphatase Total Protein Albumin Urine Color Urine Appearance Urine pH Ur Specific [place] Urine Protein Urine Glucose (UA) Urine Ketones Urine Blood Urine Nitrite Urine Bilirubin Urine Urobilinogen Ur Leukocyte Esterase RPR Titer 02/19/18 02/19/18 02/20/18 08:00 08:00 06:10 WBC RBC Hgb Hct MCV MCH MCHC RDW Plt Count MPV Sodium 141 Potassium 4.7 Chloride 110 H Carbon Dioxide 22 Anion Gap 9 BUN 30 H Creatinine 1.8 H Creat Clearance w eGFR 39.52 POC Glucometer 93 Random Glucose 87 Calcium 8.5 Total Bilirubin 0.4 AST 25 ALT 31 Alkaline Phosphatase 85 Total Protein 6.2 L Albumin 3.3 L Urine Color Urine Appearance Urine pH Ur Specific [place] Urine Protein Urine Glucose (UA) Urine Ketones Urine Blood Urine Nitrite Urine Bilirubin Urine Urobilinogen Ur Leukocyte Esterase RPR Titer Nonreactive 02/20/18 02/21/18 02/22/18 13:55 06:07 06:22 WBC RBC Hgb Hct MCV MCH MCHC RDW Plt Count MPV Sodium Potassium Chloride Carbon Dioxide Anion Gap BUN Creatinine Creat Clearance w eGFR POC Glucometer 111 110 Random Glucose Calcium Total Bilirubin AST ALT Alkaline Phosphatase Total Protein Albumin Urine Color Ltyellow Urine Appearance Clear Urine pH 6.0 Ur Specific [place] 1.012 Urine Protein Negative Urine Glucose (UA) Negative Urine Ketones Negative Urine Blood Negative Urine Nitrite Negative Urine Bilirubin Negative Urine Urobilinogen Negative Ur Leukocyte Esterase Negative RPR Titer 02/23/18 06:14 WBC RBC Hgb Hct MCV MCH MCHC RDW Plt Count MPV Sodium Potassium Chloride Carbon Dioxide Anion Gap BUN Creatinine Creat Clearance w eGFR POC Glucometer 108 Random Glucose Calcium Total Bilirubin AST ALT Alkaline Phosphatase Total Protein Albumin Urine Color Urine Appearance Urine pH Ur Specific [place] Urine Protein Urine Glucose (UA) Urine Ketones Urine Blood Urine Nitrite Urine Bilirubin Urine Urobilinogen Ur Leukocyte Esterase RPR Titer d/w pt- will give flexeril for pain. With anemia and CRI: Will start iron and vit C. d/w pt the importance of f/u for this with PCP
--- NOTE | 2018-02-23 15:00 | HP ---
Psychiatrist Admission - Data Date of interview: 02/23/18 Admission source: Transfer from [address] [place] [address]. Identifying data: First admission to [address] for this 52 y/o AA male entering rehabilitation treatment for alcohol, cannabis and cocaine dependence. Completed detoxification on [address] [place] [address]. Patient is single without dependents, homeless, unemployed and supported on SSI/SSD benefits. Medical History: Anemia, eczema, colitis, hypertension, hepatitis B, arthritis, heart murmur and diabetes mellitus. Reported allergy to metformin. Psychiatric History: No change since my encounter of 02/19/18. History as follows : report of one psychiatric hospitalization ([facility]). Patient is diagnosed with Bipolar Disorder. Prescribed a regimen of haldol + depakote + seroquel + trazodone (doses not recalled). Last taken " more than a week ago ". No current contact with psychiatric OPD care providers ( psychiatrist relocated a week prior to this [facility] visit). " I have refills for three months. " Mr Horn reports one suicide attempt via wrist-cutting (six years ago). Physical/Sexual Abuse/Trauma History: Patient denies. Additional Comment: Confirmed by the patient in this interview. Details in current [facility] report : Smoking history: Current every day smoker. Have you smoked in the past 12 months: Yes. Aproximately how many cigarettes per day: 10. Cigars Per Day: 0. Hx Chewing Tobacco Use: No. Initiated information on smoking cessation: Yes. 'Breaking Loose' booklet given: 02/18/18. - Substance & Tx. History. Hx Alcohol Use: Yes. Hx Substance Use: Yes. Substance Use Type : Alcohol, Cocaine, Marijuana. Hx Substance Use Treatment: No. - Substances Abused. BEER. Route: Oral. Frequency: Daily. Amount used: 12 CANS- 12 OZ. Age of first use: 10. Date of Last Use: 02/18/18. THC. Route: Smoking. Frequency: Daily. Amount used: 2 EIGHT BALLS. Age of first use: 6. Date of Last Use: 02/18/18. Urine Drug Screen Results: THC-Marijuana, TIRSO- Cocaine. Noted. Vital Signs: Vital Signs - 24 hr 02/23/18 02/23/18 03:30 06:57 Temperature 98 F Pulse Rate 86 Respiratory 16 18 Rate Blood Pressure 135/92 Allergies/Adverse Reactions: Allergies Allergy/AdvReac Type Severity Reaction Status Date / Time metformin Allergy Rash Verified 02/22/18 13:46 - Substance Abuse/Tx History Hx Alcohol Use: Yes (consumes 12 beers daily.) Hx Substance Use: Yes Substance Use Type: Alcohol (started drinking alcohol at age 6 ; No prior detoxification treatment. ), Cocaine (spends around 200 dollars on cocaine daily ; onset of abuse at age 20), Marijuana (started smoking cannabis at age 6 ; spends 125 dollars/day) Hx Substance Use Treatment: No (first deox followed with rehabilitation, as per patient) Mental Status Exam - Mental Status Exam Alert and Oriented to: Time, Place, Person Cognitive Function: Good Patient Appearance: Well Groomed Mood: Withdrawn, Anxious Affect: Mood Congruent, Constricted Patient Behavior: Appropriate, Cooperative Speech Pattern: Clear Voice Loudness: Normal Thought Process: Goal Oriented Thought Disorder: Not Present Hallucinations: Denies Suicidal Ideation: Denies Homicidal Ideation: Denies Insight/Judgement: Fair Sleep: Poorly, Difficulty falling asleep Appetite: Good Muscle strength/Tone: Normal Gait/Station: Normal Psychiatric Findings - Problem List ([place] 1, 2,3) (1) Alcohol dependence with uncomplicated withdrawal Current Visit: Yes Status: Acute (2) Cannabis dependence Current Visit: Yes Status: Chronic (3) Cocaine dependence Current Visit: Yes Status: Chronic (4) Nicotine dependence Current Visit: Yes Status: Chronic (5) Substance induced mood disorder Current Visit: Yes Status: Acute (6) Schizoaffective disorder Current Visit: Yes Status: Chronic (7) Insomnia Current Visit: Yes Status: Acute (8) Non-compliant patient Current Visit: Yes Status: Chronic - Initial Treatment Plan Initial Treatment Plan: Psychoeducation. Psychotherapy. Patient is encouraged to attend daily groups. AA meetings. Support prvided. Medications resumed at patient's request : haldol 5 mg po bid + cogentin 0.5 mg po bid + depakote 250 mg po bid + trazodone 100 mg po hs. Side eeffects/benefits of each drug are discussed with the patient. Mr Horn is made aware of the risk of EPS, abnormal involuntary movements, neuroleptic malignant syndrome, liver dysfunction, blood dyscrasias, anticholinergic effects and priapism. Patient endorses good response to this regimen and he consents (verbally) to follow this plan of care. Observation.
[2018-02-23] MEDS: FERROUS SO4 325 MG TABLET (FP) PO SCH (17:19)
[2018-02-23] MEDS: CYCLOBENZAPRINE HCL 5 MG TABLET PO PRN (17:55)
[2018-02-23] MEDS: THIAMINE HCL 100 MG TABLET (FP) PO SCH (22:08)
[2018-02-23] MEDS: DOCUSATE SODIUM 100 MG CAPSULE (FP) PO SCH (22:08)
[2018-02-23] MEDS: BENZTROPINE MESYLATE 1 MG TABLET (FP) PO SCH (22:08)
[2018-02-23] MEDS: ASCORBIC ACID 500 MG TABLET (FP) PO SCH (22:08)
[2018-02-23] MEDS: traZODone HCL 100 MG TABLET (FP) PO SCH (22:08)
[2018-02-23] MEDS: DIVALPROEX SODIUM 250 MG TABLET E.C. PO SCH (22:09)
[2018-02-23] MEDS: HALOPERIDOL 5 MG TABLET (FP) PO SCH (22:09)
[2018-02-24] MEDS: CYCLOBENZAPRINE HCL 5 MG TABLET PO PRN (06:11)
[2018-02-24] MEDS: FERROUS SO4 325 MG TABLET (FP) PO SCH ×2 (07:01→19:12)
[2018-02-24] MEDS: PRENATAL VITAMINS W/ FOLIC ACID TABLET (FP) PO SCH (09:43)
[2018-02-24] MEDS: HALOPERIDOL 5 MG TABLET (FP) PO SCH ×2 (09:43→23:05)
[2018-02-24] MEDS: DIVALPROEX SODIUM 250 MG TABLET E.C. PO SCH ×2 (09:43→23:04)
[2018-02-24] MEDS: BENZTROPINE MESYLATE 1 MG TABLET (FP) PO SCH ×2 (09:43→23:04)
[2018-02-24] MEDS: NICOTINE 21 MG/24 HOURS TOPICAL PATCH TD SCH (09:43)
[2018-02-24] MEDS: ASCORBIC ACID 500 MG TABLET (FP) PO SCH ×2 (10:38→23:05)
[2018-02-24] MEDS ORDERED: TRIMETHOBENZAMIDE HCL 200MG/2ML INJ IM ONE (12:28)
--- NOTE | 2018-02-24 12:29 | PN ---
[facility] Progress Note Note: Vital Signs Temperature 98.3 F 02/24/18 06:49 Pulse Rate 78 02/24/18 06:49 Respiratory Rate 18 02/24/18 06:49 Blood Pressure 126/69 02/24/18 06:49 O2 Sat by Pulse Oximetry (%) nausea and vomiting one time dose tigan IM fluids as tolerated continue to monitor
--- NOTE | 2018-02-24 13:46 | PN ---
S Progress Note Note: Patient c/o of diffuse abdominal pain and vomiting since this AM. Patient is a 52 yo male with hx of UC, HTN, DM II, Hep B, marijuana, cocaine, alcohol dependence. Patient reports has hx of chronic abdominal pain, which is worse on the right upper quadrant, rates 10/10 and projectile vomiting with no relief aft IM ode dose of tigan. Vital Signs Temperature 98.3 F 02/24/18 06:49 Pulse Rate 78 02/24/18 06:49 Respiratory Rate 18 02/24/18 06:49 Blood Pressure 126/69 02/24/18 06:49 O2 Sat by Pulse Oximetry (%) Laboratory Last Values WBC 6.9 K/mm3 (4.0-10.0) 02/19/18 08:00 RBC 3.26 M/mm3 (4.00-5.60) L 02/19/18 08:00 Hgb 10.6 GM/dL (11.7-16.9) L 02/19/18 08:00 Hct 30.7 % (35.4-49) L 02/19/18 08:00 MCV 94.2 fl (80-96) 02/19/18 08:00 MCH 32.4 pg (25.7-33.7) 02/19/18 08:00 MCHC 34.4 g/dl (32.0-35.9) 02/19/18 08:00 RDW 14.9 % (11.9-15.9) 02/19/18 08:00 Plt Count 205 K/MM3 (134-434) 02/19/18 08:00 MPV 8.7 fl (7.5-11.1) 02/19/18 08:00 Sodium 141 mmol/L (136-145) 02/19/18 08:00 Potassium 4.7 mmol/L (3.5-5.1) 02/19/18 08:00 Chloride 110 mmol/L (98-107) H 02/19/18 08:00 Carbon Dioxide 22 mmol/L (21-32) 02/19/18 08:00 Anion Gap 9 MMOL/L (8-16) 02/19/18 08:00 BUN 30 mg/dL (7-18) H 02/19/18 08:00 Creatinine 1.8 mg/dL (0.55-1.3) H 02/19/18 08:00 Creat Clearance w eGFR 39.52 (>60) 02/19/18 08:00 POC Glucometer 93 UNITS (80-120) 02/24/18 06:12 Random Glucose 87 mg/dL (74-106) 02/19/18 08:00 Calcium 8.5 mg/dL (8.5-10.1) 02/19/18 08:00 Total Bilirubin 0.4 mg/dL (0.2-1) 02/19/18 08:00 AST 25 U/L (15-37) 02/19/18 08:00 ALT 31 U/L (13-61) 02/19/18 08:00 Alkaline Phosphatase 85 U/L (45-117) 02/19/18 08:00 Total Protein 6.2 g/dl (6.4-8.2) L 02/19/18 08:00 Albumin 3.3 g/dl (3.4-5.0) L 02/19/18 08:00 Urine Color Ltyellow 02/20/18 13:55 Urine Appearance Clear 02/20/18 13:55 Urine pH 6.0 (5.0-8.0) 02/20/18 13:55 Ur Specific [place] 1.012 (1.010-1.035) 02/20/18 13:55 Urine Protein Negative (NEGATIVE) 02/20/18 13:55 Urine Glucose (UA) Negative (NEGATIVE) 02/20/18 13:55 Urine Ketones Negative (NEGATIVE) 02/20/18 13:55 Urine Blood Negative (NEGATIVE) 02/20/18 13:55 Urine Nitrite Negative (NEGATIVE) 02/20/18 13:55 Urine Bilirubin Negative (<2.0 mg/dL) 02/20/18 13:55 Urine Urobilinogen Negative mg/dL (0.2-1.0) 02/20/18 13:55 Ur Leukocyte Esterase Negative (NEGATIVE) 02/20/18 13:55 RPR Titer Nonreactive (NONREACTIVE) 02/19/18 08:00 Aox3, restless s1 s2 + murmur lungs clear throughout BS x4, non-distended, DrEdwin Cain + RUQ tenderness on deep palpation skin intact, dry full ROM ambulatory RUQ patient sent to [facility] for further evaluation, transported via [facility], Endorsed to Dr. Lazo
[2018-02-24 15:56] VITALS: BP 148/83; PULSE 79; TEMP 98.1
[2018-02-24] MEDS: DOCUSATE SODIUM 100 MG CAPSULE (FP) PO SCH (23:04)
[2018-02-24] MEDS: traZODone HCL 100 MG TABLET (FP) PO SCH (23:05)
[2018-02-24] MEDS: THIAMINE HCL 100 MG TABLET (FP) PO SCH (23:05)
== END 2018-02-24 23:03 | disposition short-term general hospital (02) | DRG 895 ==
LOC: YASAS 20:16 → Y3N 23:41 → Y3W 02-22 13:25 → Y3N 02-22 13:25 → Y3W 02-22 13:53
PROVIDERS: ATTEND Psychiatry & Neurology Psychiatry
PROC: HZ2ZZZZ Detoxification Services for Substance Abuse Treatment (ICD-10-PCS; principal; 2018-02-18)
PROC: HZ42ZZZ Group Counseling for Substance Abuse Treatment, Cognitive-Behavioral (ICD-10-PCS; 2018-02-22)
DX: F10.230 Alcohol dependence with withdrawal, uncomplicated (principal); F14.20 Cocaine dependence, uncomplicated; N17.9 Acute kidney failure, unspecified; K51.90 Ulcerative colitis, unspecified, without complications; F12.20 Cannabis dependence, uncomplicated; F17.210 Nicotine dependence, cigarettes, uncomplicated; F19.24 Other psychoactive substance dependence with psychoactive substance-induced mood disorder; F25.9 Schizoaffective disorder, unspecified; E11.9 Type 2 diabetes mellitus without complications; E78.00 Pure hypercholesterolemia, unspecified; I10 Essential (primary) hypertension; K59.00 Constipation, unspecified; R01.1 Cardiac murmur, unspecified; R10.11 Right upper quadrant pain; R11.2 Nausea with vomiting, unspecified; L30.9 Dermatitis, unspecified; M19.90 Unspecified osteoarthritis, unspecified site; D64.9 Anemia, unspecified; G47.00 Insomnia, unspecified; Z91.19 Patient's noncompliance with other medical treatment and regimen; Z86.19 Personal history of other infectious and parasitic diseases; Z86.69 Personal history of other diseases of the nervous system and sense organs; Z91.5 Personal history of self-harm; Z59.0 Homelessness
CPT/HCPCS: 36415; 80053; 81003; 82962; 85027; 86593; 93005; 93010; J0735

== ENCOUNTER 2018-02-20 15:14 | Emergency (ER) | payer OTHER ==
[2018-02-20 15:23] VITALS: PULSE 68; BMI 20.5
[2018-02-20] MEDS ORDERED: SODIUM CHLORIDE 1,000 ML IV SCH (16:15)
[2018-02-20] MEDS ORDERED: MAG HYDROX/AL HYDROX/SIMETH 30 ML UNIT-DOSE CUP PO ONE ×2 (16:19→18:33)
[2018-02-20] MEDS ORDERED: BISACODYL 5 MG TABLET.DR (FP) PO ONE (16:21)
--- NOTE | 2018-02-20 16:35 | PDOC ---
History of Present Illness - General Chief Complaint: Pain Stated Complaint: ABD PAIN Time Seen by Provider: 02/20/18 15:56 History Source: Patient Exam Limitations: Clinical Condition - History of Present Illness Initial Comments: 02/20/18 16:32 Patient with history of hypertension, hyperlipidemia, diabetes,chronic hepatitis and chronic constipation present from [facility] with complain of left upper quadrant and lower quadrant pain with no bowel movement for a week. Patient reported history of colitis. Patient has not been compliant with his hypertension or any of his medications. Patient has not been following up with GI despite being told of having colitis a month ago. Patient reported he usually have bowel movement every other day but has not had a bowel movement for week now. Patient denies nausea, vomiting. Patient denies any other symptoms Timing/Duration: 1 week Past History - Past Medical History Allergies/Adverse Reactions: Allergies Allergy/AdvReac Type Severity Reaction Status Date / Time metformin Allergy Rash Verified 02/20/18 15:22 Home Medications: Ambulatory Orders Benztropine Mesylate [Cogentin -] 0.5 mg PO DAILY 02/18/18 Divalproex Sodium [Depakote] 250 mg PO BID 02/18/18 Haloperidol [Haldol -] 5 mg PO BID 02/18/18 traZODone HCL [Trazodone HCl] 100 mg PO DAILY 02/18/18 Anemia: Yes Asthma: No Cancer: No Cardiac Disorders: No CVA: No COPD: No CHF: No Dementia: No Diabetes: Yes (dx ) GI Disorders: No Disorders: No HTN: Yes (dx non compliant with meds) Hypercholesterolemia: Yes Kidney Stones: No Liver Disease: Yes (ELEVATED ENZYMES/ HEP B TREATED) Seizures: Yes (2013) Thyroid Disease: No - Reproductive History Testicular Surgery: No - Suicide/Smoking/Psychosocial Hx Smoking History: Current every day smoker Have you smoked in the past 12 months: Yes Number of Cigarettes Smoked Daily: 10 Cigars Per Day: 0 Information on smoking cessation initiated: No 'Breaking Loose' booklet given: 02/18/18 Hx Alcohol Use: Yes Drug/Substance Use Hx: Yes Substance Use Type: Alcohol, Cocaine, Marijuana Hx Substance Use Treatment: No Review of Systems - Review of Systems Able to Perform ROS?: Yes Is the patient limited Estonian proficient: No Constitutional: No: Chills, Fever, Weakness Respiratory: No: Symptoms reported, Cough, Orthopnea, Shortness of Breath, SOB with Exertion, SOB at Rest, Stridor, Wheezing, Productive cough, Hemoptysis, Other Cardiac (ROS): No: Symptoms Reported, Chest Pain, Edema, Irregular Heart Rate, Lightheadedness, Palpitations, Syncope, Chest Tightness, Other ABD/GI: Yes: Abd. Pain w/ defecation, Constipated ( chronic), Abdominal cramping (LUQ/LLQ). No: Abdominal Distended, Blood Streaked Bowels, Diarrhea, Nausea, Rectal Bleeding, Vomiting, Tarry Stools : No: Burning, Dysuria, Discharge, Frequency, Flank Pain, Hematuria, Urgency Musculoskeletal: No: Back Pain All Other Systems: Reviewed and Negative *Physical Exam - Vital Signs Last Vital Signs Temp Pulse Resp BP Pulse Ox 97.8 F 68 22 H 180/107 H 100 02/20/18 15:20 02/20/18 15:20 02/20/18 15:20 02/20/18 15:20 02/20/18 15:20 - Physical Exam Comments: 02/20/18 16:36 GENERAL: Well developed, well nourished. Awake and alert. No acute distress. CARDIOVASCULAR: Regular rate and rhythm. No murmurs, rubs, or gallops. Distal pulses are 2+ and symmetric. PULMONARY: No evidence of respiratory distress. Lungs clear to auscultation bilaterally. No wheezing, rales or rhonchi. ABDOMINAL: Diffuse hypoactive bowel sounds in all 4 quadrants. Moderate tenderness to left upper quadrant and lower quadrant. Soft. Non-distended. No rebound or guarding. No organomegaly. SKIN: Warm and dry. Normal capillary refill. No rashes. No jaundice. NEUROLOGICAL: Alert, awake, oriented. Gait is normal without ataxia. PSYCHIATRIC: Cooperative. Good eye contact. Appropriate mood and affect. General Appearance: Yes: Nourished, Appropriately Dressed. No: Apparent Distress ED Treatment Course - RADIOLOGY Radiology Studies Ordered: Category Date Time Status ABDOMEN & PELVIS CT WITH CONTR [CT] Stat CT Scan 02/20/18 16:10 Ordered Medical Decision Making - Medical Decision Making 02/20/18 16:38 Patient with history of hypertension, and diabetes, hyperlipidemia and chronic constipation with history of colitis presented with complain of 1 week history of left-sided abdominal pain with constipation for a week. Patient with no bowel movement for a week now. Exams sick to go for diffuse but decreased bowel sounds with moderate tenderness to left upper and lower quadrant with no guarding or rebound. CBC, CMP and lactate lab ordered. Abdominal CT with contrast ordered to follow up with history of colitis.
[2018-02-20 16:47] LABS: BASO % 1.3 % (0-2.0); EOS % 2.8 % (0-4.5); HEMATOCRIT 32.4 % (35.4-49); HEMOGLOBIN 11.3 GM/dL (11.7-16.9); LYMPH % 30.5 % (8-40); MCH 32.7 pg (25.7-33.7); MCHC 34.7 g/dl (32.0-35.9); MEAN PLT VOLUME 8.6 fl (7.5-11.1); MONO % 5.3 % (3.8-10.2); NEUT % 60.1 % (42.8-82.8); PLATELET COUNT 231 K/MM3 (134-434); RBC 3.45 M/mm3 (4.00-5.60); WHITE BLOOD COUNT 8.6 K/mm3 (4.0-10.0)
[2018-02-20] MEDS ORDERED: morphine CARPU-JECT 2 MG/1 ML DISP.SYRIN IM ONE (16:52)
[2018-02-20] MEDS ORDERED: MORPHINE SULFATE 2 MG/ML VIAL ONE (16:52)
[2018-02-20] MEDS ORDERED: morphine CARPU-JECT 2 MG/1 ML DISP.SYRIN IVPUSH ONE (16:56)
[2018-02-20 18:07] LABS: ALBUMIN 3.5 g/dl (3.4-5.0); ALK PHOS 91 U/L (45-117); ANION GAP 6 MMOL/L (8-16); BILIRUBIN,TOTAL 0.2 mg/dL (0.2-1); BLOOD UREA NITROGEN 25 mg/dL (7-18); CALCIUM 8.2 mg/dL (8.5-10.1); CHLORIDE 108 mmol/L (98-107); CO2 28 mmol/L (21-32); CREATININE 1.7 mg/dL (0.55-1.3); GLUCOSE,RANDOM 85 mg/dL (74-106); POTASSIUM 4.8 mmol/L (3.5-5.1); SGOT/AST 17 U/L (15-37); SGPT/ALT 30 U/L (13-61); SODIUM 142 mmol/L (136-145); TOT PROT 6.8 g/dl (6.4-8.2)
[2018-02-20] MEDS ORDERED: MAG HYDROX/AL HYDROX/SIMETH 30 ML UNIT-DOSE CUP ONE (18:44)
--- NOTE | 2018-02-20 20:06 | PDOC ---
*Physical Exam - Vital Signs Last Vital Signs Temp Pulse Resp BP Pulse Ox 97.8 F 68 22 H 180/107 H 100 02/20/18 15:20 02/20/18 15:20 02/20/18 15:20 02/20/18 15:20 02/20/18 15:20 ED Treatment Course - LABORATORY CBC & Chemistry Diagram: 02/20/18 16:30 02/20/18 17:30 - ADDITIONAL ORDERS Additional order review: Laboratory Results 02/20/18 02/20/18 02/20/18 17:30 16:30 16:30 Sodium 142 Cancelled Potassium 4.8 Cancelled Chloride 108 H Cancelled Carbon Dioxide 28 Cancelled Anion Gap 6 L Cancelled BUN 25 H Cancelled Creatinine 1.7 H Cancelled Creat Clearance w eGFR 42.21 Cancelled Random Glucose 85 Cancelled Lactic Acid 0.9 Calcium 8.2 L Cancelled Total Bilirubin 0.2 Cancelled AST 17 Cancelled ALT 30 Cancelled Alkaline Phosphatase 91 Cancelled Total Protein 6.8 Cancelled Albumin 3.5 Cancelled 02/20/18 16:30 RBC 3.45 L MCV 94.0 MCHC 34.7 RDW 15.0 MPV 8.6 Neutrophils % 60.1 Lymphocytes % 30.5 Monocytes % 5.3 Eosinophils % 2.8 Basophils % 1.3 - Medications Given in the ED: ED Medications Discontinued Medications Generic Name Dose Route Start Last Admin Trade Name Freq PRN Reason Stop Dose Admin Al Hydroxide/Mg Hydroxide 30 ml 02/20/18 16:19 02/20/18 17:22 Mylanta Oral Suspension - PO 02/20/18 16:20 Not Given ONCE ONE Al Hydroxide/Mg Hydroxide 30 ml 02/20/18 18:33 02/20/18 18:49 Mylanta Oral Suspension - PO 02/20/18 18:34 30 ml ONCE ONE Administration Bisacodyl 10 mg 02/20/18 16:21 02/20/18 17:23 Dulcolax - PO 02/20/18 16:22 Not Given ONCE ONE Morphine Sulfate 2 mg 02/20/18 16:52 02/20/18 16:59 Morphine Injection - IM 02/20/18 16:53 Not Given ONCE ONE Morphine Sulfate 2 mg 02/20/18 16:56 02/20/18 16:59 Morphine Injection - IVPUSH 02/20/18 16:57 2 mg ONCE ONE Administration Medical Decision Making - Medical Decision Making 02/20/18 20:05 Endorsed to me to follow CT scan and disposition. Patient seen and evaluated requesting to have a sandwich. 02/20/18 21:42 Patient Full Name: ARAM DUMONT Patient Accession No: [id number] Patient : 1965 Reason for Exam: r/o colitis Addenda Reason: Dr. Leiva on the line Referring Physician: JOSUE HU Patient Name: TIM CHIU THIS IS A PRELIMINARY REPORT FROM [facility] EXAM: CT abdomen and pelvis without contrast IMAGES:[id number] DATE OF EXAM: 2018-02-20 19:07:54 REASON FOR EXAM: Rule out colitis COMPARISON: None Findings: 3-4 mm nodules in the right middle lobe. Mild atelectasis and scarring in lung bases. No pleural effusions. Small hiatal hernia. The liver, gallbladder, pancreas, adrenal glands, and spleen are grossly unremarkable. Faint small left renal cyst. Punctate 1 mm nonobstructing left renal calcification. No ureteral calculi or hydronephrosis. No AAA. Moderate stool in the colon. No obvious colon wall thickening or inflammatory changes to suggest colitis. No evidence for diverticulitis, small bowel obstruction, or free air. Part of a normal appendix with intraluminal gas is suspected on axial images 84- 93 and coronal images 38-55. One or more of the following dose reduction techniques were used: automated exposure control, adjustment of the mA and/or kV according to patient size, use of iterative reconstructive technique. THIS DOCUMENT HAS BEEN ELECTRONICALLY SIGNED Chu Mcgrath MD 02/20/2018 21:09 B[place] Love Please call Imaging Mechanism Inspector [phone] with questions. INTERPRETING RADIOLOGIST: Chu Mcgrath MD Electronically Signed: Feb 20, 2018 09:11PM BARTOLO CT scan report discussed with the patient as above. Patient tolerating by mouth, ate sandwich and juice without complications. Will transfer to [facility]. 02/20/18 22:07 Patient given lactulose 30 g by mouth. *DC/Admit/Observation/Transfer Diagnosis at time of Disposition: Abdominal pain Qualifiers: Abdominal location: unspecified location Qualified Code(s): R10.9 - Unspecified abdominal pain Constipation Qualifiers: Constipation type: unspecified constipation type Qualified Code(s): K59.00 - Constipation, unspecified - Discharge Dispostion Disposition: TRANSFER ACUTE CARE/OTHER HOSP - Referrals - Patient Instructions - Post Discharge Activity - Transfer to Acute Care Facility Receiving Facility: Other hosp. not listed Transfer comment: 02/20/18 22:10 Transferred to [facility] 3 N.
[2018-02-20] MEDS ORDERED: LACTULOSE 20 GM/30 ML UDC (FOR ORAL USE ONLY) PO ONE (22:06)
[2018-02-20] MEDS ORDERED: LACTULOSE 20 GM/30 ML UDC (FOR ORAL USE ONLY) ONE (22:16)
[2018-02-20 23:08] VITALS: BP 149/88; TEMP 97.9
== END 2018-02-20 22:47 | disposition short-term general hospital (02) ==
LOC: JER 15:14
PROC: 3E0337Z Introduction of Electrolytic and Water Balance Substance into Peripheral Vein, Percutaneous Approach (ICD-10-PCS; principal; 2018-02-20)
PROC: 3E033NZ Introduction of Analgesics, Hypnotics, Sedatives into Peripheral Vein, Percutaneous Approach (ICD-10-PCS; 2018-02-20)
DX: K59.00 Constipation, unspecified (principal); I10 Essential (primary) hypertension; E78.5 Hyperlipidemia, unspecified; E11.9 Type 2 diabetes mellitus without complications; R94.5 Abnormal results of liver function studies; Z86.19 Personal history of other infectious and parasitic diseases; Z86.69 Personal history of other diseases of the nervous system and sense organs; Z59.0 Homelessness; F10.10 Alcohol abuse, uncomplicated; F14.10 Cocaine abuse, uncomplicated; F12.10 Cannabis abuse, uncomplicated; F17.210 Nicotine dependence, cigarettes, uncomplicated
CPT/HCPCS: 36415; 74176-TC; 80053; 83605; 85025; 96361; 96374; 99283-25; J7030

== ENCOUNTER 2018-02-24 14:12 | Inpatient (IN) | payer OTHER ==
[2018-02-24] MEDS ORDERED: SODIUM CHLORIDE 0.9% 1000 ML INFUS.BAG IV ONE (14:34)
[2018-02-24] MEDS ORDERED: FAMOTIDINE 20 MG/50 ML IVPB 20 MG/50 ML MG IVPB ONE ×2 (14:34→14:49)
[2018-02-24 14:54] LABS: BASO % 0.8 % (0-2.0); EOS % 1.9 % (0-4.5); HEMATOCRIT 33.8 % (35.4-49); HEMOGLOBIN 11.2 GM/dL (11.7-16.9); LYMPH % 23.3 % (8-40); MCH 31.3 pg (25.7-33.7); MCHC 33.1 g/dl (32.0-35.9); MEAN CELL VOLUME 94.6 fl (80-96); MEAN PLT VOLUME 7.9 fl (7.5-11.1); MONO % 4.9 % (3.8-10.2); NEUT % 69.1 % (42.8-82.8); PLATELET COUNT 225 K/MM3 (134-434); RBC 3.57 M/mm3 (4.00-5.60); RDW 15.1 % (11.9-15.9); WHITE BLOOD COUNT 10.7 K/mm3 (4.0-10.0)
--- NOTE | 2018-02-24 14:59 | PDOC ---
History of Present Illness - General Chief Complaint: Pain, Acute Stated Complaint: ABD PAIN Time Seen by Provider: 02/24/18 14:33 History Source: Patient Exam Limitations: No Limitations - History of Present Illness Initial Comments: 02/24/18 14:59 The patient is a 52M with a PMH of HTN, HLD, diabetes, chronic hepatitis and chronic constipation who presents to the ER with complaints of abdominal pain. The patient states that he developed sudden onset RUQ, sharp, constant, worsening abdominal pain associated with nausea and NBNB vomiting. He denies any CP but admits to fevers, chills, and SOB. He denies any diarrhea and abdominal surgeries. Past History - Past Medical History Allergies/Adverse Reactions: Allergies Allergy/AdvReac Type Severity Reaction Status Date / Time metformin Allergy Rash Verified 02/24/18 21:31 Home Medications: Ambulatory Orders Benztropine Mesylate [Cogentin -] 0.5 mg PO DAILY 02/18/18 Divalproex Sodium [Depakote] 250 mg PO BID 02/18/18 Haloperidol [Haldol -] 5 mg PO BID 02/18/18 traZODone HCL [Trazodone HCl] 100 mg PO HS 02/18/18 Anemia: Yes Asthma: No Cancer: No Cardiac Disorders: No CVA: No COPD: No CHF: No Dementia: No Diabetes: Yes (dx ) GI Disorders: No Disorders: No HTN: Yes (dx non compliant with meds) Hypercholesterolemia: Yes Kidney Stones: No Liver Disease: Yes (ELEVATED ENZYMES/ HEP B TREATED) Seizures: Yes (2013) Thyroid Disease: No - Reproductive History Testicular Surgery: No - Suicide/Smoking/Psychosocial Hx Smoking History: Current every day smoker Have you smoked in the past 12 months: Yes Number of Cigarettes Smoked Daily: 10 Cigars Per Day: 0 Information on smoking cessation initiated: No 'Breaking Loose' booklet given: 02/18/18 Hx Alcohol Use: Yes Drug/Substance Use Hx: Yes Substance Use Type: Alcohol, Cocaine, Marijuana Hx Substance Use Treatment: No Review of Systems - Review of Systems Able to Perform ROS?: Yes Comments:: 02/24/18 15:30 GENERAL/CONSTITUTIONAL: Positive for fever and chills. No weakness. HEAD, EYES, EARS, NOSE AND THROAT: No change in vision. No ear pain or discharge. No sore throat. CARDIOVASCULAR: No chest pain, palpitations, or lightheadedness. RESPIRATORY: Positive for SOB. No cough, wheezing, or hemoptysis. GASTROINTESTINAL: Positive for nausea, vomiting, and abdominal pain. GENITOURINARY: No dysuria, frequency, hematuria, or change in urination. MUSCULOSKELETAL: No joint or muscle swelling or pain. No neck or back pain. SKIN: No rash or lesions. NEUROLOGIC: No headache, numbness, tingling, focal weakness, loss of consciousness, or change in strength/sensation. Is the patient limited Tamazight proficient: No *Physical Exam - Vital Signs Last Vital Signs Temp Pulse Resp BP Pulse Ox 98.1 F 76 18 135/58 L 100 02/24/18 14:26 02/24/18 14:26 02/24/18 14:26 02/24/18 14:26 02/24/18 14:26 - Physical Exam Comments: 02/24/18 15:31 GENERAL: Well developed, well nourished. Awake and alert. No acute distress. HEENT: Normocephalic, atraumatic. Hearing grossly normal. Moist mucous membranes. PERRLA, EOMI. No conjunctival pallor. Sclera are non-icteric. NECK: Supple. Full ROM. CARDIOVASCULAR: Regular rate and rhythm. No murmurs, rubs, or gallops. PULMONARY: No evidence of respiratory distress. Lungs clear to auscultation bilaterally. No wheezing, rales or rhonchi. ABDOMINAL: Soft. TTP in RUQ. +Boyer's sign. Non-distended. No rebound or guarding. MUSCULOSKELETAL: Normal range of motion at all joints. No bony deformities or tenderness. EXTREMITIES: No cyanosis. No clubbing. No edema. No calf tenderness or swelling. SKIN: Warm and dry. Normal capillary refill. No rashes. No jaundice. NEUROLOGICAL: Alert, awake, appropriate. Cranial nerves 2-12 grossly intact. Normal speech. Gait is normal without ataxia. PSYCHIATRIC: Cooperative. Good eye contact. Appropriate mood and affect. ED Treatment Course - LABORATORY CBC & Chemistry Diagram: 02/24/18 14:43 02/24/18 14:43 - RADIOLOGY Radiology Studies Ordered: Category Date Time Status ABDOMEN US -LIMITED [US] Stat Ultrasound 02/24/18 14:48 Ordered Medical Decision Making - Medical Decision Making 02/24/18 15:32 The patient is a 52M with a PMH of HTN, HLD, diabetes, chronic hepatitis, and chronic constipation who presents to the ER with complaints of RUQ pain, fevers , chills, and RUQ tenderness concerning for cholecystitis. Pt has no fever in our facility but is very tender. Pt had a CTAP for the same presentation 4 days ago and was negative. Repeating labs and will obtain U/S of RUQ. Will treat pain and keep pt NPO. 02/24/18 17:06 RUQ u/s pending. Pt states he feels much better, although is slightly lethargic. Sclera yellow. Pending US read and reassessment. 02/24/18 19:37 RUQ remarkable for pancreatic duct dilatation. Will order CTAP for reassessment as last CTAP was "markedly limited" per radiologic reading. Pending CTAP. Labs notable for stable anemia and stable Cr. 02/24/18 21:56 I have endorsed the patient to Dr. Aparicio for admission under Dr. Hodge. 02/24/18 22:23 Case d/w Dr. Bailon who agrees for inpatient monitoring and MRCP for patient. *DC/Admit/Observation/Transfer Diagnosis at time of Disposition: Pancreatic duct dilated Nausea and vomiting Qualifiers: Vomiting type: projectile vomiting Qualified Code(s): R11.12 - Projectile vomiting - Discharge Dispostion Condition at time of disposition: Guarded Decision to Admit order: Yes - Referrals - Patient Instructions - Post Discharge Activity
[2018-02-24 15:14] LABS: INR 0.93 (0.83-1.09)
[2018-02-24] MEDS ORDERED: METOCLOPRAMIDE HCL INJECTION 10 MG/2 ML VIAL IVPB ONE ×2 (15:17→21:56)
[2018-02-24] MEDS ORDERED: morphine CARPU-JECT 4 MG/1 ML DISP.SYRIN IVPUSH ONE ×2 (15:17→22:15)
[2018-02-24] MEDS ORDERED: METOCLOPRAMIDE HCL INJECTION 10 MG/2 ML VIAL ONE ×2 (15:27→22:13)
[2018-02-24] MEDS ORDERED: morphine SULFATE 4 MG/ML VIAL ONE ×2 (15:28→22:14)
[2018-02-24 15:30] LABS: ALK PHOS 102 U/L (45-117); ANION GAP 5 MMOL/L (8-16); BILIRUBIN,TOTAL 0.3 mg/dL (0.2-1); BLOOD UREA NITROGEN 26 mg/dL (7-18); CALCIUM 9.6 mg/dL (8.5-10.1); CHLORIDE 101 mmol/L (98-107); CO2 35 mmol/L (21-32); GLUCOSE,RANDOM 109 mg/dL (74-106); LIPASE 229 U/L (73-393); POTASSIUM 4.7 mmol/L (3.5-5.1); SGOT/AST 29 U/L (15-37); SGPT/ALT 36 U/L (13-61); SODIUM 141 mmol/L (136-145); TOT PROT 7.8 g/dl (6.4-8.2)
[2018-02-24 15:32] LABS: ACETONE SERUM NEGATIVE (NEGATIVE)
--- NOTE | 2018-02-24 16:18 | PDOC ---
Attending Attestation - HPI HPI: 02/24/18 16:58 Patient is a 52 year old male with a significant past medical history of HTN, HLD, diabetes, chronic hepatitis and chronic constipation, who presents to the ED with complaints of abdominal pain that began earlier this week. Patient reports right upper quadrant pain is a sharp constant pain that he states has been gradually worsening over time, prompting him to come into the ED for further evaluation. He reports experiencing associated symptoms of nausea, vomiting, fevers, chills and shortness of breath. Patient reports being evaluated for similar symptoms on February 20, and was evaluated for potential colitis. Denies chest pain. Denies contact with sick individuals, out of state travelling. Denies dysuria, hematuria. Denies diarrhea, constipation. Denies any other symptoms. Allergies: Metformin Social history: Current smoker (10 cigarettes per day). Former cocaine and marijuana use. Former alcohol Use. Surgical history: None PMD: None - Physicial Exam PE: 02/24/18 16:58 GENERAL: Awake, alert, and fully oriented, in no acute distress HEAD: No signs of trauma EYES: PERRLA, EOMI, sclera anicteric, conjunctiva clear ENT: Auricles normal inspection, hearing grossly normal, nares patent, oropharynx clear without exudates. Moist mucosa NECK: Normal ROM, supple, no lymphadenopathy, JVD, or masses LUNGS: Breath sounds equal, clear to auscultation bilaterally. No wheezes, and no crackles HEART: Regular rate and rhythm, normal S1 and S2, no murmurs, rubs or gallops ABDOMEN: +Tenderness to palpation to RUQ. +Boyer's sign positive. Soft, normoactive bowel sounds. No guarding, no rebound. No masses EXTREMITIES: Normal range of motion, no edema. No clubbing or cyanosis. No cords, erythema, or tenderness NEUROLOGICAL: Cranial nerves II through XII grossly intact. Normal speech, normal gait SKIN: Warm, Dry, normal turgor, no rashes or lesions noted. <Chaparro Fitzpatrick - Last Filed: 02/24/18 16:58> - Resident Resident Name: Gumaro Jarvis - ED Attending Attestation I have performed the following: I have examined & evaluated the patient, The case was reviewed & discussed with the resident, I agree w/resident's findings & plan, Exceptions are as noted - Medical Decision Making 02/24/18 16:09 A portion of this note was documented by scribe services under my direction. I have reviewed the details of the note, within reason, and agree with the documentation with the following case summary and management plan written by me. Patient treated in the ED. Nursing notes are reviewed and incorporated into the medical decision-making. Vital signs reviewed. Peripheral IV access obtained by the nurse, laboratory studies are drawn and sent, reviewed and interpreted by myself. Vital Signs Temp Pulse Resp BP Pulse Ox 98.1 F 98 H 18 135/58 L 100 02/24/18 14:26 02/24/18 16:04 02/24/18 14:26 02/24/18 14:26 02/24/18 16:04 52-year-old male with history of hypertension, diabetes, hyperlipidemia, chronic hepatitis, polysubstance abuse on detoxification from cocaine, alcohol, marijuana sent in from [address] [place] [address] for evaluation for persistent right upper quadrant pain. Patient was seen and evaluated on February 20 for similar types pain. At the time, the patient evaluation for potential colitis. CAT scan to time demonstrated a markedly limited study with no gross evidence of colitis or acute pathology. There was some retained fecal material throughout the colon. Given these findings, we need to investigate for potential billary colic or acute cholecystitis (or possibly repeat CT abdomen and pelvis given the limited study of previous CT). Reassess. 02/24/18 17:30 CBC, BMP 02/24/18 14:43 02/24/18 14:43 CMP Sodium 141 mmol/L (136-145) 02/24/18 14:43 Potassium 4.7 mmol/L (3.5-5.1) 02/24/18 14:43 Chloride 101 mmol/L (98-107) 02/24/18 14:43 Carbon Dioxide 35 mmol/L (21-32) H 02/24/18 14:43 Anion Gap 5 MMOL/L (8-16) L 02/24/18 14:43 BUN 26 mg/dL (7-18) H 02/24/18 14:43 Creatinine 2.0 mg/dL (0.55-1.3) H 02/24/18 14:43 Creat Clearance w eGFR 34.99 (>60) 02/24/18 14:43 Random Glucose 109 mg/dL (74-106) H 02/24/18 14:43 Lactic Acid 1.4 mmol/L (0.4-2.0) 02/24/18 15:10 Calcium 9.6 mg/dL (8.5-10.1) 02/24/18 14:43 Total Bilirubin 0.3 mg/dL (0.2-1) 02/24/18 14:43 AST 29 U/L (15-37) 02/24/18 14:43 ALT 36 U/L (13-61) 02/24/18 14:43 Alkaline Phosphatase 102 U/L (45-117) 02/24/18 14:43 Creatine Kinase Cancelled 02/24/18 16:12 Troponin I Cancelled 02/24/18 16:12 Total Protein 7.8 g/dl (6.4-8.2) 02/24/18 14:43 Albumin 4.0 g/dl (3.4-5.0) 02/24/18 14:43 Lipase 229 U/L (73-393) 02/24/18 14:43 Cr stable. Ultrasound shows no acute cholecystitis or biliary colic. However, pt does have dilated pancreatic duct. Will repeat CT abdomen and pelvis. If CT is equivocal, will admit for MRCP. <Herbert Gomez - Last Filed: 02/24/18 19:00> Heart Score/ECG Review #1 ECG reviewed & interpreted by me at: 15:15 02/24/18 19:00 NSR 65, left axis deviation, no std/sidney, QTC 451 msec <Herbert Gomez - Last Filed: 02/24/18 19:00>
--- NOTE | 2018-02-24 21:59 | PN ---
Teaching Attending Note Name of Resident: Lashae Spaulding ATTENDING PHYSICIAN STATEMENT I saw and evaluated the patient. I reviewed the resident's note and discussed the case with the resident. I agree with the resident's findings and plan as documented. SUBJECTIVE: Patient is a 52 year old man with a PMH of polysubstance abuse, HTN, HLD, NIDDM , tobacco use, chronic hepatitis and chronic constipation, who presents to the ER from [facility] with complaints of abdominal pain that began earlier this week. Patient reports right upper quadrant pain is a sharp constant pain that he states has been gradually worsening over time, prompting him to come into the ER for further evaluation. He reports experiencing associated symptoms of nausea, vomiting, fevers, chills and shortness of breath. Patient reports being evaluated for similar symptoms on February 20, and was evaluated for potential colitis. Denies chest pain, contact with sick individuals, out of state travelling, dysuria, or diarrhea. OBJECTIVE: Alert Vital Signs Period Temp Pulse Resp BP Sys/Benavides Pulse Ox Last 24 Hr 97.8 F-98.1 F 71-98 16-18 135-156/58-83 100-100 HEENT: No Jaundice, eye redness or discharge, PERRLA, EOMI. Normocephalic, atraumatic. External ears are normal and hearing is grossly intact. No nasal discharge. Neck: Supple, nontender. No palpable adenopathy or thyromegaly. No JVD Chest: Good effort. Clear to auscultation and percussion. Heart: Regular. No S3, rub or murmur Abdomen: Not distended, soft, diffuse tenderness; HSM. No rebound or guarding. Normoactive bowel sounds. Ext: Peripheral pulses intact. No leg edema. Skin: Warm and dry. No petechiae, rash or ecchymosis. Neuro: Alert. Oriented x3. CN 2-12 grossly intact. Sensation grossly intact in all four extremities and DTR are symmetric. Home Medications Medication Instructions Recorded Benztropine Mesylate [Cogentin -] 0.5 mg PO DAILY 02/18/18 Divalproex Sodium [Depakote] 250 mg PO BID 02/18/18 Haloperidol [Haldol -] 5 mg PO BID 02/18/18 traZODone HCL [Trazodone HCl] 100 mg PO HS 11/02/18 Abnormal Lab Results 02/24/18 02/24/18 14:43 14:43 WBC 10.7 H RBC 3.57 L Hgb 11.2 L Hct 33.8 L Carbon Dioxide 35 H Anion Gap 5 L BUN 26 H Creatinine 2.0 H Random Glucose 109 H Creatine Kinase 508 H CK-MB (CK-2) 6.9 H ASSESSMENT AND PLAN: 1. Abdominal pain/Vomiting - Etiology unclear. May be side effect of drug use, constipation or diabetic gastropathy. Only finding of note on CT is mildly dilated main pancreatic duct. Will get MRCP, treat with Miralax and enema to address constipation and consult GI for possible EGD/Colonoscopy. If symptoms persist, may get gastric emptying study. Will treat with IV reglan, protonix and IV NS. Leukocytosis is likely reactive. Get UA. Treat with antihypertensive medication. 2. DM - Will implement sliding scale insulin regimen. Provide comprehensive diabetes care with patient teaching and counseling about the importance of euglycemia, eye care and foot care. 3. Tobacco Use We will provide patient all the necessary assistance to facilitate smoking cessation and prescribe Nicotine patch. 4. CKD? - Patient has multiple risk factors for kidney failure. Needs basic nephrologic workup - UA, kidney sonogram, PTH, and phosphate levels. Encourage liberal oral fluid intake to correct any superimposed dehydration. Avoid nephrotoxic agents such as NSAIDS, aminoglycosides, contrast dyes and certain Alternative medicine products. 5. Anemia - Etiology unclear. Will do basic anemia work up including serial stool guaiacs, reticulocyte count and iron studies. 6. Polysubstance abuse/Alcohol abuse - Monitor for withdrawal. Fall precautions. [place] him to stop using drugs and refer to drug detox upon discharge. 7. DVT prophylaxis - Heparin 5000u sq tid. 8. Advance directives - Full code
[2018-02-24] MEDS ORDERED: FOLIC ACID INJECTION - 1 MG, THIAMINE HCL 100 MG, MULTIVIT INJECTION ADULT 10 ML in SOD... IVPB ONE (23:26)
--- NOTE | 2018-02-24 23:41 | HP ---
CHIEF COMPLAINT: abdominal pain, nausea, vomiting PCP: none HISTORY OF PRESENT ILLNESS: Patient is a 52 y/o male with a history of HTN, HLD, hep B, DM and constipation who presents from [facility] with abdominal pain, nausea, and vomiting. Patient reports this pain began today and has been associated with nausea and vomiting all day. He has had multiple episodes of this in the past beginning six years ago. He reports it happens to him about 5 times a month. One year ago he had an episode where he reports he was diagnosed with colitis but told he did not need treatment for it. Patient reports he has vomited > 20 times today. He describes the abdominal pain as dull and sharp and mid epigastric. The pain does not radiate. The pain is sometimes worse with eating which causes him to vomit. The pain is better if he takes a shower or if he smokes marijuana. Patient also reports having constipation. Sometimes he does not have a bowel movement for a week and sometimes he goes once a day. he reports he did have a bowel movement today and that it was very hard. Patient reports that he smokes crack cocaine, drinks alcohol, and smokes marijuana every day. The last time he used any of these substances was one week ago before presenting to [facility]. Patient does not work and lives in a homeless mcc. Patient reports he has substernal pain with vomiting, he has SOB with movement and sitting, he feels feverish with chills at "different times", has back pain, hx of migraines, muscle aches, and numbness and tingling. Patient denies any diarrhea. Patient reports his hep B was treated in the past and he was told he did not need anymore treatment. ER course was notable for: (1) morphine 4mg (2) NS 1 L (3) Reglan Recent Travel: denies PAST MEDICAL HISTORY: HTN, HLD, hep B, DM and constipation PAST SURGICAL HISTORY: Social History: Smokin year pack history Alcohol: daily Drugs: crack cocaine and marijuana Family History: father had DM Allergies metformin Allergy (Verified 02/24/18 21:31) Rash rash, tremors, diarrhea HOME MEDICATIONS: Home Medications Medication Instructions Recorded Benztropine Mesylate [Cogentin -] 0.5 mg PO DAILY 02/18/18 Divalproex Sodium [Depakote] 250 mg PO BID 02/18/18 Haloperidol [Haldol -] 5 mg PO BID 02/18/18 traZODone HCL [Trazodone HCl] 100 mg PO HS 02/18/18 REVIEW OF SYSTEMS CONSTITUTIONAL: Absent: fever, chills, diaphoresis, generalized weakness, malaise, loss of appetite, weight change HEENT: Absent: rhinorrhea, nasal congestion, throat pain, throat swelling, difficulty swallowing, mouth swelling, ear pain, eye pain, visual changes CARDIOVASCULAR: Absent: chest pain, syncope, palpitations, irregular heart rate, lightheadedness , peripheral edema RESPIRATORY: Absent: cough, shortness of breath, dyspnea with exertion, orthopnea, wheezing, stridor, hemoptysis GASTROINTESTINAL:abdominal pain, nausea, vomiting,constipation, Absent: abdominal distension, diarrhea, melena, hematochezia GENITOURINARY: Absent: dysuria, frequency, urgency, hesitancy, hematuria, flank pain, genital pain MUSCULOSKELETAL: myalgia Absent:, arthralgia, joint swelling, back pain, neck pain SKIN: Absent: rash, itching, pallor HEMATOLOGIC/IMMUNOLOGIC: Absent: easy bleeding, easy bruising, lymphadenopathy, frequent infections ENDOCRINE: Absent: unexplained weight gain, unexplained weight loss, heat intolerance, cold intolerance NEUROLOGIC: Absent: headache, focal weakness or paresthesias, dizziness, unsteady gait, seizure, mental status changes, bladder or bowel incontinence PSYCHIATRIC: Absent: anxiety, depression, suicidal or homicidal ideation, hallucinations. PHYSICAL EXAMINATION Vital Signs - 24 hr 02/24/18 02/24/18 02/24/18 14:26 16:04 18:21 Temperature 98.1 F 97.8 F Pulse Rate 76 98 H Pulse Rate [ 71 Left Apical] Respiratory 18 16 Rate Blood Pressure 135/58 L Blood Pressure 156/83 [Left Arm] O2 Sat by Pulse 100 100 100 Oximetry (%) GENERAL: Awake, alert, and fully oriented, in no acute distress. agitated through exam HEAD: Normal with no signs of trauma. EYES: Pupils equal, round and reactive to light, extraocular movements intact, EARS, NOSE, THROAT: Moist mucous membranes. NECK: Normal range of motion, supple without lymphadenopathy, JVD, or masses. LUNGS: Breath sounds equal, clear to auscultation bilaterally. No wheezes, and no crackles. No accessory muscle use. HEART: Regular rate and rhythm, normal S1 and S2 without murmur, rub or gallop. ABDOMEN:diffusely tender on mild palpation, bowel signs present MUSCULOSKELETAL: Normal range of motion at all joints. No bony deformities or tenderness. No CVA tenderness. LOWER EXTREMITIES: 2+ pulses, warm, well-perfused. No calf tenderness. No peripheral edema. NEUROLOGICAL: Cranial nerves II-XII intact. Normal speech. Normal gait. PSYCHIATRIC: Cooperative. Good eye contact. SKIN: Warm, dry, normal turgor, no rashes or lesions noted, normal capillary refill. Laboratory Results - last 24 hr CBC, BMP 02/24/18 14:43 02/24/18 14:43 ASSESSMENT/PLAN: Patient is a 52 y/o male with a history of HTN, HLD, hep B, DM and constipation who presents from [facility] with abdominal pain, nausea, and vomiting. #abdominal pain, nausea, vomiting due to hyperemesis cannabis vs IBS vs colitis - patient has a long history of marijuana use and constipation, cannot exclude gastritis vs UC vs pancreatitis vs gastroparesis - US: mild main pancreatic duct dilitation, not clear on CT - f/u MRCP w/o contrast (ARTURO) - f/u Dr. Bailon consult, consider endoscopy - lipase 229 - begin patient on Miralax 17 gm BID, fleet enema one time - banana bag x1 - IV reglan 10 mg q6h prn QTC: 451 - IV protonix 40mg daily #substance abuse - f/u Dr. Pa for detox - monitor for withdrawl - fall precautions - seizure precautions - daily multivitamin - f/u Utox - COWS 18 #ARTURO - likely 2/2 to prerenal dehydration - continue to trend - f/u UA #DM - BGM , SS - patient reports he does not take medication for DM anymore - f/u A1C - cannot exclude gastroparesis, consider gastric emptying with GI consult #HTN - begin lisinopril 10 mg BID Visit type - Emergency Visit Emergency Visit: Yes ED Registration Date: 02/24/18 Care time: The patient presented to the Emergency Department on the above date and was hospitalized for further evaluation of their emergent condition. - New Patient This patient is new to me today: Yes Date on this admission: 02/25/18 - Critical Care Critical Care patient: No
[2018-02-25] MEDS: POLYETHYLENE GLYCOL 3350 119 GM BTL PO SCH ×3 (01:21→21:05)
[2018-02-25] MEDS ORDERED: SODIUM PHOSPHATE/NA BIPHOS 133 ML ENEMA PR ONE (02:15)
[2018-02-25] MEDS: HEPARIN NA (PORCINE) 5,000 UNITS/ML 1ML VIAL SQ SCH ×3 (06:50→21:04)
[2018-02-25] MEDS: INSULIN SLIDING SCALE (NOVOLOG) 1 VIAL SQ SCH ×4 (06:54→21:07)
[2018-02-25 08:15] LABS: BASO % 0.4 % (0-2.0); EOS % 0.9 % (0-4.5); HEMATOCRIT 30.6 % (35.4-49); LYMPH % 28.1 % (8-40); MCH 30.7 pg (25.7-33.7); MCHC 32.5 g/dl (32.0-35.9); MEAN CELL VOLUME 94.3 fl (80-96); MEAN PLT VOLUME 7.8 fl (7.5-11.1); MONO % 6.7 % (3.8-10.2); NEUT % 63.9 % (42.8-82.8); PLATELET COUNT 196 K/MM3 (134-434); RBC 3.25 M/mm3 (4.00-5.60); RDW 14.8 % (11.9-15.9); WHITE BLOOD COUNT 11.2 K/mm3 (4.0-10.0)
[2018-02-25 08:52] LABS: ALBUMIN 3.2 g/dl (3.4-5.0); ALK PHOS 89 U/L (45-117); ANION GAP 9 MMOL/L (8-16); BILIRUBIN,TOTAL 0.5 mg/dL (0.2-1); BLOOD UREA NITROGEN 23 mg/dL (7-18); CALCIUM 8.3 mg/dL (8.5-10.1); CHLORIDE 104 mmol/L (98-107); CO2 28 mmol/L (21-32); CREATININE 1.5 mg/dL (0.55-1.3); GLUCOSE,RANDOM 71 mg/dL (74-106); PHOSPHOROUS 3.6 mg/dL (2.5-4.9); POTASSIUM 4.1 mmol/L (3.5-5.1); SGOT/AST 28 U/L (15-37); SGPT/ALT 27 U/L (13-61); SODIUM 141 mmol/L (136-145); TOT PROT 6.2 g/dl (6.4-8.2)
[2018-02-25] MEDS: HALOPERIDOL 5 MG TABLET (FP) PO SCH ×2 (10:18→21:04)
[2018-02-25] MEDS: DIVALPROEX SODIUM 250 MG TABLET E.C. PO SCH ×2 (10:18→21:04)
[2018-02-25] MEDS: BENZTROPINE MESYLATE 0.5 MG TABLET (FP) PO SCH (10:18)
[2018-02-25] MEDS: PRENATAL VITAMINS W/ FOLIC ACID TABLET (FP) PO SCH (10:18)
[2018-02-25] MEDS: PANTOPRAZOLE SODIUM 40 MG VIAL IVPUSH SCH (10:18)
--- NOTE | 2018-02-25 11:03 | PN ---
Progress Note, Physician Chief Complaint: Mr Horn says he is feeling fine today. Denies cp, sob, n/v. Currently npo. - Current Medication List Current Medications: Active Medications Benztropine Mesylate (Cogentin -) 0.5 mg PO DAILY [facility] Last Admin: 02/25/18 10:18 Dose: 0.5 mg Divalproex Sodium (Depakote -) 250 mg PO BID [facility] Last Admin: 02/25/18 10:18 Dose: 250 mg Haloperidol (Haldol -) 5 mg PO BID [facility] Last Admin: 02/25/18 10:18 Dose: 5 mg Heparin Sodium (Porcine) (Heparin -) 5,000 unit SQ TID [facility] Last Admin: 02/25/18 06:50 Dose: 5,000 unit Insulin Aspart (Novolog Vial Sliding Scale -) 1 vial SQ ACHS [facility]; Protocol Last Admin: 02/25/18 06:54 Dose: Not Given Metoclopramide HCl (Reglan Injection -) 10 mg IVPUSH Q6H PRN PRN Reason: NAUSEA AND/OR VOMITING Pantoprazole Sodium (Protonix Iv) 40 mg IVPUSH DAILY [facility] Last Admin: 02/25/18 10:18 Dose: 40 mg Polyethylene Glycol (Miralax (For Daily Use) -) 17 gm PO BID [facility] Last Admin: 02/25/18 10:12 Dose: Not Given Multivit/Folic Acid/Iron ( Vitamins (Sjr) -) 1 tab PO DAILY [facility] Last Admin: 02/25/18 10:18 Dose: 1 tab Trazodone HCl (Desyrel -) 100 mg PO [facility] - Objective Vital Signs: Vital Signs Temperature 36.9 C 02/25/18 09:08 Pulse Rate 67 02/25/18 09:08 Respiratory Rate 20 02/25/18 09:08 Blood Pressure 124/75 02/25/18 09:08 O2 Sat by Pulse Oximetry (%) 99 02/25/18 01:33 Constitutional: Yes: No Distress, Calm, Thin Cardiovascular: Yes: Regular Rate and Rhythm. No: Gallop, Murmur, Rub Respiratory: Yes: Regular, CTA Bilaterally. No: Rales, Rhonchi, Wheezes Gastrointestinal: Yes: Normal Bowel Sounds, Soft. No: Distention, Tenderness Extremities: Yes: WNL Edema: No Labs: CBC, BMP 02/25/18 06:50 02/25/18 06:50 INR, PTT INR 0.93 (0.83-1.09) 02/24/18 14:43 Problem List - Problems (1) Cyclical vomiting syndrome Assessment/Plan: -suspect secondary to marijuana use -however also taking depakote, haldol, and cogentin which can cause nausea and vomiting -case d/w GI -MRCP pending -after MRCP, will advance diet and see how tolerates Code(s): G43.A0 - CYCLICAL VOMITING, NOT INTRACTABLE Qualifiers: Vomiting Intractability: intractable Nausea presence: with nausea Qualified Code(s): G43.A1 - Cyclical vomiting, intractable (2) ARTURO (acute kidney injury) Assessment/Plan: -continue IVF -improving Code(s): N17.9 - ACUTE KIDNEY FAILURE, UNSPECIFIED (3) Pancreatic duct dilated Assessment/Plan: -MRCP pending Code(s): K86.89 - OTHER SPECIFIED DISEASES OF PANCREAS (4) Cannabis dependence Assessment/Plan: -return to [facility] when stable Code(s): F12.20 - CANNABIS DEPENDENCE, UNCOMPLICATED (5) Cocaine dependence Assessment/Plan: -return to [facility] when stable Code(s): F14.20 - COCAINE DEPENDENCE, UNCOMPLICATED (6) Schizoaffective disorder Assessment/Plan: -controlled -continue current regimen Code(s): F25.9 - SCHIZOAFFECTIVE DISORDER, UNSPECIFIED (7) Bipolar 1 disorder Assessment/Plan: -controlled -continue current management Code(s): F31.9 - BIPOLAR DISORDER, UNSPECIFIED (8) Schizophrenia Assessment/Plan: -controlled -continue current management Code(s): F20.9 - SCHIZOPHRENIA, UNSPECIFIED
[2018-02-25 11:49] LABS: COCAINE, UR NEGATIVE ng/ml (CUTOFF=300); METHADONE, UR NEGATIVE ng/ml (CUTOFF=300); PHENCYCLIDINE,URINE NEGATIVE ng/ml (CUTOFF=25); URINE AMPHETAMINES NEGATIVE ng/ml (CUTOFF=500); URINE BARBITURATES NEGATIVE ng/ml (CUTOFF=200)
--- NOTE | 2018-02-25 11:54 | CON.GI ---
Consult Consult Specialty:: GI Referred by:: Hospitalist Reason for Consultation:: Abdominal pain - History of Present Illness Chief Complaint: Abdominal pain History of Present Illness: 52M living in [place], sent to substance abuse rehab in [place]. He abuses alcohol, cocaine and marijuana. He complained of abdominal pain at the rehab center and was transferred to [facility]. He currently denies abdominal pain. he had describes previous vomiting however there has been no vomiting opn admission. In ER he had blood work revealing a WBC of 10.7. He was noted to have a normocytic anemia and he states being anemic for at least 10 years. He does not recall ever having had a work-up for his anemia. He may have had a colonoscopy in the that was "OK". He describes having hepatitis B, being treated in the with 1 injection and being told that it was "OK". He complains of chronic constipation. There has been no rectal bleeding. 02/20/18 he had a non contrast CT scan of the abdomen that was unrevealing. During his current ER visit, he underwent abdominal US that revealed a normal appearing liver and failed to reveal gallstones. there was no biliary tract dilatation. It did raise the question of a mildly dilated pancreatic duct. He then underwent CT scan of the abdomen and pelvis with oral contrast and without IV contrast that failed to reveal the pancreatic duct dilation. he currently denies abdominal pain and states that he is hungry. There is no family history of colorectal cancer or other GI malignancy. - History Source History Provided By: Patient - Past Medical History Cardio/Vascular: Yes: HTN Hepatobiliary: Yes: Hepatitis B (treated in ? 1995) Heme/Onc: Yes: Anemia Endocrine: Yes: Diabetes Mellitus (DM II) - Past Surgical History Additional Surgical History: Denies - Alcohol/Substance Use Hx Alcohol Use: Yes (12 pack beer per day) History of Substance Use: reports: Cocaine, Marijuana. denies: Heroin, Prescription - Smoking History Smoking history: Current every day smoker Have you smoked in the past 12 months: Yes Aproximately how many cigarettes per day: 10 - Social History Usual Living Arrangement: Alone Occupation: Unemployed: Lives in [place] Place of : [facility] History of Recent Travel: No Home Medications - Allergies Allergies/Adverse Reactions: Allergies Allergy/AdvReac Type Severity Reaction Status Date / Time metformin Allergy Rash Verified 02/24/18 21:31 - Home Medications Home Medications: Ambulatory Orders Benztropine Mesylate [Cogentin -] 0.5 mg PO DAILY 02/18/18 Divalproex Sodium [Depakote] 250 mg PO BID 02/18/18 Haloperidol [Haldol -] 5 mg PO BID 02/18/18 traZODone HCL [Trazodone HCl] 100 mg PO HS 02/18/18 Family Disease History - Family Disease History Family Disease History: Heart Disease: Father (DRUG ADDICT, HTN), Other: Father , Mother (SCHIZOPHRENIA), Sister (3, healthy) Other Family History: No children. No family history of colorectal cancer or other GI malignancy Review of Systems - Review of Systems Constitutional: reports: Chills Respiratory: reports: Cough, SOB Gastrointestinal: reports: Abdominal Pain, Constipation (chronic), Nausea, Vomiting. denies: Diarrhea, Melena, Rectal Bleeding Physical Exam-GI Vital Signs: Vital Signs Temperature 98.4 F 02/25/18 09:08 Pulse Rate 67 02/25/18 09:08 Respiratory Rate 20 02/25/18 09:08 Blood Pressure 124/75 02/25/18 09:08 O2 Sat by Pulse Oximetry (%) 99 02/25/18 01:33 Constitutional: Yes: Calm Eyes: No: Sclera Icterus Cardiovascular: Yes: Regular Rate and Rhythm. No: Murmur Respiratory: Yes: CTA Bilaterally Gastrointestinal Inspection: No: Distention, Scars ...Auscultate: Yes: Normoactive Bowel Sounds ...Palpate: No: Hepatomegaly, Splenomegaly, Tenderness ...Percussion: No: Tympanitic ...Rectal Exam: Yes: Other (No external lesions, no masses, trace light brown stool in rectal vault that is guaiac negative, 2 + prostate) Edema: No (No LE edema) Neurological: Yes: Alert (awake, alert) Labs: CBC, BMP 02/25/18 06:50 02/25/18 06:50 INR, PTT INR 0.93 (0.83-1.09) 02/24/18 14:43 Hepatic Panel Total Bilirubin 0.5 mg/dL (0.2-1) 02/25/18 06:50 AST 28 U/L (15-37) 02/25/18 06:50 ALT 27 U/L (13-61) 02/25/18 06:50 Alkaline Phosphatase 89 U/L (45-117) 02/25/18 06:50 Albumin 3.2 g/dl (3.4-5.0) L 02/25/18 06:50 Imaging - Results Cat Scan: Report Reviewed, Image Reviewed Problem List - Problems (1) Abdominal pain Assessment/Plan: Mr. Horn is vague in his description of abdominal pain and current abdominal exam was unrevealing. He was also guaiac negative on my exam Advised: Complete cessation of cocaine / alcohol / marijuana Advance to clears Non contrast MRI of abdomen with MRCP (given renal insufficiency) to evaluate questionable dilated pancreatic duct. Will likely need formal contrast study if /when renal function improves. Check Hepatitis A/B/C serologies Code(s): R10.9 - UNSPECIFIED ABDOMINAL PAIN Qualifiers: Abdominal location: right upper quadrant Qualified Code(s): R10.11 - Right upper quadrant pain (2) Enlarged prostate Assessment/Plan: Noted on exam Work-up per PMD Code(s): N40.0 - BENIGN PROSTATIC HYPERPLASIA WITHOUT LOWER URINRY TRACT SYMP (3) Anemia Assessment/Plan: Normocytic anemia: chronic by description w/u per primary team. consider heme evaluation Will need screening colonoscopy. if acute issues resolve, this can be performed as an outpatient. I explained this to Mr. Horn. He can follow-up in clinic. If iron deficient, endoscopy could be considered as well Code(s): D64.9 - ANEMIA, UNSPECIFIED Qualifiers: Anemia type: unspecified type Qualified Code(s): D64.9 - Anemia, unspecified
[2018-02-25 11:55] LABS: OPIATES, URI POSITIVE ng/ml (CUTOFF=300); URINE BENZODIAZEPINES POSITIVE ng/ml (CUTOFF=200)
[2018-02-25 13:22] LABS: URINE APPEARANCE CLEAR; URINE BILIRUBIN NEGATIVE (<2.0 mg/dL); URINE COLOR YELLOW; URINE GLUCOSE (UA) NEGATIVE (NEGATIVE); URINE KETONE NEGATIVE (NEGATIVE); URINE LEUK ESTERASE NEGATIVE (NEGATIVE); URINE NITRITE NEGATIVE (NEGATIVE); URINE PROTEIN 1+ (NEGATIVE); URINE UROBILINOGEN NEGATIVE mg/dL (0.2-1.0)
[2018-02-25 13:37] LABS: EPI CELLS RARE /HPF (FEW)
--- NOTE | 2018-02-25 13:50 | EKG ---
Test Reason : Blood Pressure : / mmHG Vent. Rate : 065 BPM Atrial Rate : 065 BPM P-R Int : 134 ms QRS Dur : 080 ms QT Int : 434 ms P-R-T Axes : 078 -42 060 degrees QTc Int : 451 ms NORMAL SINUS RHYTHM LEFT AXIS DEVIATION ABNORMAL ECG WHEN COMPARED WITH ECG OF 19-FEB-2018 00:46, NO SIGNIFICANT CHANGE WAS FOUND Confirmed by TAM CASTORENA MD ([id number]) on 02/25/2018 1:49:53 PM Referred By: Confirmed By:TAM CASTORENA MD
--- NOTE | 2018-02-25 16:42 | PN ---
[facility] Progress Note (SOAP) Subjective: patient referred for consultation for hyperemesis 2/2 cannabis use per consult request. Pt seen at bedside , states feeling much better at this time, no complaints, states " I am hungry " denies nausea/ vomiting/ dairrhea/ constipation . PMHX : HTN , hepatitis B , HLD< OA , DM II , colitis , depression , bipolar d/ o , SAD . Meds reviewed , of note on Metoclopramide 10 mg q 6 hrs prn . Objective: 02/25/18 16:38 wnwd , resting comfortably in bed , NAD . denies recent use of illicits or ETOH as he has been in detox since 02/18/18 per MR documentation . Abnormal Lab Results 02/24/18 02/24/18 02/24/18 09:25 09:25 14:43 WBC RBC Hgb Hct Carbon Dioxide 35 H Anion Gap 5 L BUN 26 H Creatinine 2.0 H Random Glucose 109 H Calcium Creatine Kinase 508 H CK-MB (CK-2) 6.9 H Total Protein Albumin Urine Protein 1+ H Opiates Screen Positive A* Benzodiazepines Screen Positive A* U Marijuana (THC) Screen Positive A* 02/25/18 02/25/18 06:50 06:50 WBC 11.2 H RBC 3.25 L Hgb 10.0 L Hct 30.6 L Carbon Dioxide Anion Gap BUN 23 H Creatinine 1.5 H Random Glucose 71 L Calcium 8.3 L Creatine Kinase CK-MB (CK-2) Total Protein 6.2 L Albumin 3.2 L Urine Protein Opiates Screen Benzodiazepines Screen U Marijuana (THC) Screen Vital Signs (72 hours) 02/24/18 02/24/18 02/24/18 14:26 16:04 18:21 Temperature 98.1 F 97.8 F Pulse Rate 76 98 H Pulse Rate [ 71 Left Apical] Respiratory 18 16 Rate Blood Pressure 135/58 L Blood Pressure 156/83 [Left Arm] O2 Sat by Pulse 100 100 100 Oximetry (%) 02/25/18 02/25/18 02/25/18 00:19 01:33 09:08 Temperature 97.9 F 98.6 F 98.4 F Pulse Rate 67 67 Pulse Rate [ 66 Left Apical] Respiratory 18 18 20 Rate Blood Pressure 135/73 124/75 Blood Pressure 140/88 [Left Arm] O2 Sat by Pulse 100 99 Oximetry (%) 02/25/18 14:00 Temperature 98.6 F Pulse Rate 69 Pulse Rate [ Left Apical] Respiratory 18 Rate Blood Pressure 117/81 Blood Pressure [Left Arm] O2 Sat by Pulse Oximetry (%) Assessment: Cannabis dependence / Cocaine dependence / ETOH dependence - no recommendations at this time, patient has completed detox and was transferred to [email or web address] ED from [facility] inpatient rehab . Abdominal pain / nausea/ vomiting - as per GI recommendations. hold worker to discuss with patient , when patient medically cleared , regarding return to inpatient rehab or referral to after-care for outpatient substance use services and counselling. 02/25/18 16:39 Plan: as above.
[2018-02-25] MEDS ORDERED: INSULIN (NOVOLOG) ASPART 100 UNITS/ML 10ML VIAL ONE (20:56)
[2018-02-25] MEDS ORDERED: PT OWN MED DRAWER 7, Y5N ONE (20:56)
[2018-02-25] MEDS ORDERED: traZODone HCL 50 MG TABLET (FP) ONE (20:56)
[2018-02-25] MEDS: traZODone HCL 100 MG TABLET (FP) PO SCH (21:04)
[2018-02-26] MEDS: HEPARIN NA (PORCINE) 5,000 UNITS/ML 1ML VIAL SQ SCH ×3 (05:42→21:22)
[2018-02-26] MEDS: INSULIN SLIDING SCALE (NOVOLOG) 1 VIAL SQ SCH ×4 (06:00→21:26)
[2018-02-26 09:03] LABS: BASO % 0.8 % (0-2.0); EOS % 2.6 % (0-4.5); HEMATOCRIT 32.8 % (35.4-49); HEMOGLOBIN 10.7 GM/dL (11.7-16.9); LYMPH % 39.4 % (8-40); MCH 30.8 pg (25.7-33.7); MCHC 32.7 g/dl (32.0-35.9); MEAN CELL VOLUME 94.4 fl (80-96); MEAN PLT VOLUME 8.3 fl (7.5-11.1); MONO % 4.8 % (3.8-10.2); NEUT % 52.4 % (42.8-82.8); PLATELET COUNT 209 K/MM3 (134-434); RBC 3.48 M/mm3 (4.00-5.60); RDW 14.5 % (11.9-15.9); WHITE BLOOD COUNT 9.2 K/mm3 (4.0-10.0)
[2018-02-26 09:36] LABS: ANION GAP 7 MMOL/L (8-16); BLOOD UREA NITROGEN 23 mg/dL (7-18); CALCIUM 8.5 mg/dL (8.5-10.1); CHLORIDE 103 mmol/L (98-107); CO2 26 mmol/L (21-32); CREATININE 1.8 mg/dL (0.55-1.3); GLUCOSE,RANDOM 122 mg/dL (74-106); PHOSPHOROUS 3.6 mg/dL (2.5-4.9); POTASSIUM 5.1 mmol/L (3.5-5.1); SODIUM 136 mmol/L (136-145)
[2018-02-26] MEDS ORDERED: PT OWN MED DRAWER 7, Y5N ONE ×2 (10:56→21:15)
[2018-02-26] MEDS: DIVALPROEX SODIUM 250 MG TABLET E.C. PO SCH ×2 (11:00→21:22)
[2018-02-26] MEDS: POLYETHYLENE GLYCOL 3350 119 GM BTL PO SCH ×2 (11:01→21:22)
[2018-02-26] MEDS: BENZTROPINE MESYLATE 0.5 MG TABLET (FP) PO SCH (11:01)
[2018-02-26] MEDS: PRENATAL VITAMINS W/ FOLIC ACID TABLET (FP) PO SCH (11:01)
[2018-02-26] MEDS: HALOPERIDOL 5 MG TABLET (FP) PO SCH ×2 (11:01→21:22)
[2018-02-26] MEDS: PANTOPRAZOLE SODIUM 40 MG VIAL IVPUSH SCH (11:11)
--- NOTE | 2018-02-26 12:55 | PN ---
Progress Note, Physician Chief Complaint: Mr Horn says he is feeling fine today. Denies cp, sob, n/v. Asking to eat - Current Medication List Current Medications: Active Medications Benztropine Mesylate (Cogentin -) 0.5 mg PO DAILY [facility] Last Admin: 02/26/18 11:01 Dose: 0.5 mg Divalproex Sodium (Depakote -) 250 mg PO BID [facility] Last Admin: 02/26/18 11:00 Dose: 250 mg Haloperidol (Haldol -) 5 mg PO BID [facility] Last Admin: 02/26/18 11:01 Dose: 5 mg Heparin Sodium (Porcine) (Heparin -) 5,000 unit SQ TID [facility] Last Admin: 02/26/18 05:42 Dose: 5,000 unit Insulin Aspart (Novolog Vial Sliding Scale -) 1 vial SQ ACHS [facility]; Protocol Last Admin: 02/26/18 11:46 Dose: Not Given Metoclopramide HCl (Reglan Injection -) 10 mg IVPUSH Q6H PRN PRN Reason: NAUSEA AND/OR VOMITING Pantoprazole Sodium (Protonix Iv) 40 mg IVPUSH DAILY [facility] Last Admin: 02/26/18 11:11 Dose: 40 mg Polyethylene Glycol (Miralax (For Daily Use) -) 17 gm PO BID [facility] Last Admin: 02/26/18 11:01 Dose: Not Given Multivit/Folic Acid/Iron ( Vitamins (Sjr) -) 1 tab PO DAILY [facility] Last Admin: 02/26/18 11:01 Dose: 1 tab Trazodone HCl (Desyrel -) 100 mg PO HS [facility] Last Admin: 02/25/18 21:04 Dose: 100 mg - Objective Vital Signs: Vital Signs Temperature 36.8 C 02/26/18 10:00 Pulse Rate 63 02/26/18 10:00 Respiratory Rate 18 02/26/18 10:00 Blood Pressure 137/87 02/26/18 10:00 O2 Sat by Pulse Oximetry (%) 99 02/25/18 22:00 Constitutional: Yes: Well Nourished, No Distress, Calm Cardiovascular: Yes: Regular Rate and Rhythm. No: Gallop, Murmur, Rub Respiratory: Yes: Regular, CTA Bilaterally. No: Rales, Rhonchi, Wheezes Gastrointestinal: Yes: Normal Bowel Sounds, Soft. No: Distention, Tenderness Extremities: Yes: WNL Edema: No Labs: CBC, BMP 02/26/18 07:45 02/26/18 07:45 INR, PTT INR 0.93 (0.83-1.09) 02/24/18 14:43 Problem List - Problems (1) Cyclical vomiting syndrome Code(s): G43.A0 - CYCLICAL VOMITING, NOT INTRACTABLE Qualifiers: Vomiting Intractability: intractable Nausea presence: with nausea Qualified Code(s): G43.A1 - Cyclical vomiting, intractable (2) ARTURO (acute kidney injury) Code(s): N17.9 - ACUTE KIDNEY FAILURE, UNSPECIFIED (3) Pancreatic duct dilated Code(s): K86.89 - OTHER SPECIFIED DISEASES OF PANCREAS (4) Cannabis dependence Code(s): F12.20 - CANNABIS DEPENDENCE, UNCOMPLICATED (5) Cocaine dependence Code(s): F14.20 - COCAINE DEPENDENCE, UNCOMPLICATED (6) Schizoaffective disorder Code(s): F25.9 - SCHIZOAFFECTIVE DISORDER, UNSPECIFIED (7) Bipolar 1 disorder Code(s): F31.9 - BIPOLAR DISORDER, UNSPECIFIED (8) Schizophrenia Code(s): F20.9 - SCHIZOPHRENIA, UNSPECIFIED Assessment/Plan (1) Cyclical vomiting syndrome Assessment/Plan: -currently resolved -advance diet -case d/w GI -if MRCP normal, safe for discharge Code(s): G43.A0 - CYCLICAL VOMITING, NOT INTRACTABLE Qualifiers: Vomiting Intractability: intractable Nausea presence: with nausea Qualified Code(s): G43.A1 - Cyclical vomiting, intractable (2) ARTURO (acute kidney injury) Assessment/Plan: -unclear of baseline -encourage po intake Code(s): N17.9 - ACUTE KIDNEY FAILURE, UNSPECIFIED (3) Pancreatic duct dilated Assessment/Plan: -MRCP pending Code(s): K86.89 - OTHER SPECIFIED DISEASES OF PANCREAS (4) Cannabis dependence Assessment/Plan: -return to [facility] when stable Code(s): F12.20 - CANNABIS DEPENDENCE, UNCOMPLICATED (5) Cocaine dependence Assessment/Plan: -return to [facility] when stable Code(s): F14.20 - COCAINE DEPENDENCE, UNCOMPLICATED (6) Schizoaffective disorder Assessment/Plan: -controlled -continue current regimen Code(s): F25.9 - SCHIZOAFFECTIVE DISORDER, UNSPECIFIED (7) Bipolar 1 disorder Assessment/Plan: -controlled -continue current management Code(s): F31.9 - BIPOLAR DISORDER, UNSPECIFIED (8) Schizophrenia Assessment/Plan: -controlled -continue current management Code(s): F20.9 - SCHIZOPHRENIA, UNSPECIFIED
[2018-02-26] MEDS ORDERED: MAG HYDROX/AL HYDROX/SIMETH 30 ML UNIT-DOSE CUP PO ONE (17:22)
[2018-02-26] MEDS: SODIUM CHLORIDE 1,000 ML IV SCH (17:48)
[2018-02-26] MEDS: METOCLOPRAMIDE HCL INJECTION 10 MG/2 ML VIAL IVPUSH PRN (18:15)
[2018-02-26] MEDS: ACETAMINOPHEN 325 MG TABLET (FP) PO PRN (20:00)
[2018-02-26] MEDS ORDERED: traZODone HCL 50 MG TABLET (FP) ONE (21:14)
[2018-02-26] MEDS ORDERED: INSULIN (NOVOLOG) ASPART 100 UNITS/ML 10ML VIAL ONE (21:14)
[2018-02-26] MEDS: traZODone HCL 100 MG TABLET (FP) PO SCH (21:21)
[2018-02-26 23:55] VITALS: BMI 18.7
[2018-02-27] MEDS: METOCLOPRAMIDE HCL INJECTION 10 MG/2 ML VIAL IVPUSH PRN (02:47)
[2018-02-27] MEDS: ACETAMINOPHEN 325 MG TABLET (FP) PO PRN (02:55)
[2018-02-27] MEDS ORDERED: MAG HYDROX/AL HYDROX/SIMETH 30 ML UNIT-DOSE CUP PO PRN (06:00)
[2018-02-27] MEDS: HEPARIN NA (PORCINE) 5,000 UNITS/ML 1ML VIAL SQ SCH ×3 (06:08→21:12)
[2018-02-27] MEDS: INSULIN SLIDING SCALE (NOVOLOG) 1 VIAL SQ SCH ×4 (06:09→21:15)
[2018-02-27] MEDS: SODIUM CHLORIDE 1,000 ML IV SCH (06:12)
[2018-02-27 09:14] LABS: BASO % 0.5 % (0-2.0); EOS % 0.2 % (0-4.5); HEMATOCRIT 33.7 % (35.4-49); LYMPH % 26.1 % (8-40); MCH 30.4 pg (25.7-33.7); MCHC 32.6 g/dl (32.0-35.9); MEAN CELL VOLUME 93.3 fl (80-96); MEAN PLT VOLUME 8.3 fl (7.5-11.1); NEUT % 69.2 % (42.8-82.8); PLATELET COUNT 224 K/MM3 (134-434); RBC 3.61 M/mm3 (4.00-5.60); RDW 14.6 % (11.9-15.9); WHITE BLOOD COUNT 9.5 K/mm3 (4.0-10.0)
--- NOTE | 2018-02-27 09:33 | PN ---
GI Progress Note Subjective: Found sleeping comfortably. When awoken, complains of abdominal pain Blood pressure has been rising - Objective Vital Signs: Vital Signs Temperature 98.4 F 02/27/18 05:16 Pulse Rate 70 02/27/18 05:16 Respiratory Rate 18 02/27/18 05:16 Blood Pressure 168/102 H 02/27/18 05:16 O2 Sat by Pulse Oximetry (%) 96 02/26/18 21:00 Constitutional: Calm Eyes: No: Sclera Icterus Cardiovascular: Yes: Regular Rate and Rhythm Respiratory: Yes: CTA Bilaterally Gastrointestinal Inspection: No: Distention ...Auscultate: Yes: Normoactive Bowel Sounds ...Palpate: Yes: Soft, Tenderness (grimacing upon palpation diffusely at times) ...Percussion: No: Tympanitic Edema: No (No LE edema) Neurological: Yes: Alert Labs: INR, PTT INR 0.93 (0.83-1.09) 02/24/18 14:43 Problem List - Problems (1) Abdominal pain Assessment/Plan: COmplaints of vague abdominal pain. He did appear quite comfortable, however Await MRCP results NPO, IV hydration Code(s): R10.9 - UNSPECIFIED ABDOMINAL PAIN Qualifiers: Abdominal location: right upper quadrant Qualified Code(s): R10.11 - Right upper quadrant pain (2) Enlarged prostate Assessment/Plan: F/U per PMD Code(s): N40.0 - BENIGN PROSTATIC HYPERPLASIA WITHOUT LOWER URINRY TRACT SYMP (3) Anemia Assessment/Plan: Normocytic and chronic by description. Guaiac negative on exam W/U per PMD. Check iron studies Code(s): D64.9 - ANEMIA, UNSPECIFIED Qualifiers: Anemia type: unspecified type Qualified Code(s): D64.9 - Anemia, unspecified
[2018-02-27] MEDS: BENZTROPINE MESYLATE 0.5 MG TABLET (FP) PO SCH (09:41)
[2018-02-27] MEDS: PRENATAL VITAMINS W/ FOLIC ACID TABLET (FP) PO SCH (09:42)
[2018-02-27] MEDS: DIVALPROEX SODIUM 250 MG TABLET E.C. PO SCH ×2 (09:42→21:11)
[2018-02-27] MEDS: HALOPERIDOL 5 MG TABLET (FP) PO SCH ×2 (09:42→21:11)
[2018-02-27] MEDS: POLYETHYLENE GLYCOL 3350 119 GM BTL PO SCH ×2 (09:42→21:13)
[2018-02-27] MEDS: PANTOPRAZOLE SODIUM 40 MG VIAL IVPUSH SCH (09:43)
[2018-02-27] MEDS: DEXTROSE 5%-0.45% SALINE 1,000 ML IV SCH ×2 (09:44→22:50)
[2018-02-27 10:14] LABS: ANION GAP 9 MMOL/L (8-16); BLOOD UREA NITROGEN 20 mg/dL (7-18); CALCIUM 8.5 mg/dL (8.5-10.1); CHLORIDE 103 mmol/L (98-107); CO2 25 mmol/L (21-32); CREATININE 1.6 mg/dL (0.55-1.3); GLUCOSE,RANDOM 92 mg/dL (74-106); PHOSPHOROUS 3.9 mg/dL (2.5-4.9); POTASSIUM 4.8 mmol/L (3.5-5.1); SODIUM 137 mmol/L (136-145)
--- NOTE | 2018-02-27 11:14 | PN ---
Progress Note, Physician Chief Complaint: Mr Horn says he had abdominal pain and nausea with vomiting yesterday. Today feeling better. No cp or sob. - Current Medication List Current Medications: Active Medications Acetaminophen (Tylenol -) 650 mg PO Q6H PRN PRN Reason: FEVER Last Admin: 02/27/18 02:55 Dose: 650 mg Al Hydroxide/Mg Hydroxide (Mylanta Oral Suspension -) 30 ml PO BID PRN PRN Reason: DYSPEPSIA Benztropine Mesylate (Cogentin -) 0.5 mg PO DAILY [facility] Last Admin: 02/27/18 09:41 Dose: 0.5 mg Divalproex Sodium (Depakote -) 250 mg PO BID [facility] Last Admin: 02/27/18 09:42 Dose: 250 mg Haloperidol (Haldol -) 5 mg PO BID [facility] Last Admin: 02/27/18 09:42 Dose: 5 mg Heparin Sodium (Porcine) (Heparin -) 5,000 unit SQ TID [facility] Last Admin: 02/27/18 06:08 Dose: 5,000 unit Sodium Chloride (Normal Saline -) 1,000 mls @ 75 mls/hr IV ASDIR [facility] Last Admin: 02/27/18 06:12 Dose: 75 mls/hr Dextrose/Sodium Chloride (D5-1/2ns -) 1,000 mls @ 75 mls/hr IV ASDIR [facility] Last Admin: 02/27/18 09:44 Dose: 75 mls/hr Insulin Aspart (Novolog Vial Sliding Scale -) 1 vial SQ ACHS [facility]; Protocol Last Admin: 02/27/18 06:09 Dose: Not Given Metoclopramide HCl (Reglan Injection -) 10 mg IVPUSH Q6H PRN PRN Reason: NAUSEA AND/OR VOMITING Last Admin: 02/27/18 02:47 Dose: 10 mg Pantoprazole Sodium (Protonix Iv) 40 mg IVPUSH DAILY [facility] Last Admin: 02/27/18 09:43 Dose: 40 mg Polyethylene Glycol (Miralax (For Daily Use) -) 17 gm PO BID [facility] Last Admin: 02/27/18 09:42 Dose: Not Given Multivit/Folic Acid/Iron ( Vitamins (Sjr) -) 1 tab PO DAILY [facility] Last Admin: 02/27/18 09:42 Dose: 1 tab Trazodone HCl (Desyrel -) 100 mg PO [facility] Last Admin: 02/26/18 21:21 Dose: 100 mg - Objective Vital Signs: Vital Signs Temperature 36.9 C 02/27/18 05:16 Pulse Rate 70 02/27/18 05:16 Respiratory Rate 18 02/27/18 05:16 Blood Pressure 168/102 H 02/27/18 05:16 O2 Sat by Pulse Oximetry (%) 96 02/26/18 21:00 Constitutional: Yes: No Distress, Calm, Thin Cardiovascular: Yes: Regular Rate and Rhythm. No: Gallop, Murmur, Rub Respiratory: Yes: Regular, CTA Bilaterally. No: Rales, Rhonchi, Wheezes Gastrointestinal: Yes: Normal Bowel Sounds, Soft. No: Distention, Tenderness Extremities: Yes: WNL Edema: No Labs: CBC, BMP 02/27/18 08:06 02/27/18 08:06 INR, PTT INR 0.93 (0.83-1.09) 02/24/18 14:43 Problem List - Problems (1) Cyclical vomiting syndrome Code(s): G43.A0 - CYCLICAL VOMITING, NOT INTRACTABLE Qualifiers: Vomiting Intractability: intractable Nausea presence: with nausea Qualified Code(s): G43.A1 - Cyclical vomiting, intractable (2) ARTURO (acute kidney injury) Code(s): N17.9 - ACUTE KIDNEY FAILURE, UNSPECIFIED (3) Pancreatic duct dilated Code(s): K86.89 - OTHER SPECIFIED DISEASES OF PANCREAS (4) Cannabis dependence Code(s): F12.20 - CANNABIS DEPENDENCE, UNCOMPLICATED (5) Cocaine dependence Code(s): F14.20 - COCAINE DEPENDENCE, UNCOMPLICATED (6) Schizoaffective disorder Code(s): F25.9 - SCHIZOAFFECTIVE DISORDER, UNSPECIFIED (7) Bipolar 1 disorder Code(s): F31.9 - BIPOLAR DISORDER, UNSPECIFIED (8) Schizophrenia Code(s): F20.9 - SCHIZOPHRENIA, UNSPECIFIED Assessment/Plan (1) Cyclical vomiting syndrome Assessment/Plan: -case d/w GI -made npo excepts meds -MRI called for read of MRC Code(s): G43.A0 - CYCLICAL VOMITING, NOT INTRACTABLE Qualifiers: Vomiting Intractability: intractable Nausea presence: with nausea Qualified Code(s): G43.A1 - Cyclical vomiting, intractable (2) ARTURO (acute kidney injury) Assessment/Plan: -unclear of baseline -encourage po intake Code(s): N17.9 - ACUTE KIDNEY FAILURE, UNSPECIFIED (3) Pancreatic duct dilated Assessment/Plan: -MRCP pending Code(s): K86.89 - OTHER SPECIFIED DISEASES OF PANCREAS (4) Cannabis dependence Assessment/Plan: -return to [facility] when stable Code(s): F12.20 - CANNABIS DEPENDENCE, UNCOMPLICATED (5) Cocaine dependence Assessment/Plan: -return to [facility] when stable Code(s): F14.20 - COCAINE DEPENDENCE, UNCOMPLICATED (6) Schizoaffective disorder Assessment/Plan: -controlled -continue current regimen Code(s): F25.9 - SCHIZOAFFECTIVE DISORDER, UNSPECIFIED (7) Bipolar 1 disorder Assessment/Plan: -controlled -continue current management Code(s): F31.9 - BIPOLAR DISORDER, UNSPECIFIED (8) Schizophrenia Assessment/Plan: -controlled -continue current management Code(s): F20.9 - SCHIZOPHRENIA, UNSPECIFIED
[2018-02-27] MEDS ORDERED: traZODone HCL 50 MG TABLET (FP) ONE (21:03)
[2018-02-27] MEDS ORDERED: PT OWN MED DRAWER 7, Y5N ONE (21:04)
[2018-02-27] MEDS: traZODone HCL 100 MG TABLET (FP) PO SCH (21:11)
[2018-02-28] MEDS ORDERED: MELATONIN 5 MG TABLETS PO ONE (01:28)
[2018-02-28] MEDS ORDERED: amLODIPine BESYLATE 5 MG TABLET (FP) PO ONE (02:28)
[2018-02-28] MEDS: HEPARIN NA (PORCINE) 5,000 UNITS/ML 1ML VIAL SQ SCH ×3 (06:25→21:29)
[2018-02-28] MEDS: INSULIN SLIDING SCALE (NOVOLOG) 1 VIAL SQ SCH ×4 (06:30→21:27)
[2018-02-28 07:47] LABS: ANION GAP 6 MMOL/L (8-16); BLOOD UREA NITROGEN 16 mg/dL (7-18); CALCIUM 8.7 mg/dL (8.5-10.1); CHLORIDE 103 mmol/L (98-107); CO2 28 mmol/L (21-32); CREATININE 1.6 mg/dL (0.55-1.3); GLUCOSE,RANDOM 103 mg/dL (74-106); MAGNESIUM 1.9 mg/dL (1.8-2.4); PHOSPHOROUS 3.9 mg/dL (2.5-4.9); POTASSIUM 4.5 mmol/L (3.5-5.1); SODIUM 137 mmol/L (136-145)
[2018-02-28 07:49] LABS: BASO % 0.6 % (0-2.0); EOS % 0.6 % (0-4.5); HEMATOCRIT 33.2 % (35.4-49); LYMPH % 35.8 % (8-40); MEAN CELL VOLUME 93.8 fl (80-96); MEAN PLT VOLUME 8.1 fl (7.5-11.1); MONO % 6.1 % (3.8-10.2); NEUT % 56.9 % (42.8-82.8); PLATELET COUNT 217 K/MM3 (134-434); RBC 3.54 M/mm3 (4.00-5.60); RDW 14.3 % (11.9-15.9); WHITE BLOOD COUNT 8.6 K/mm3 (4.0-10.0)
[2018-02-28] MEDS: PANTOPRAZOLE SODIUM 40 MG VIAL IVPUSH SCH (09:59)
[2018-02-28] MEDS: PRENATAL VITAMINS W/ FOLIC ACID TABLET (FP) PO SCH (10:01)
[2018-02-28] MEDS: BENZTROPINE MESYLATE 0.5 MG TABLET (FP) PO SCH (10:01)
[2018-02-28] MEDS: HALOPERIDOL 5 MG TABLET (FP) PO SCH ×2 (10:01→21:29)
[2018-02-28] MEDS: DIVALPROEX SODIUM 250 MG TABLET E.C. PO SCH ×2 (10:01→21:28)
[2018-02-28] MEDS: POLYETHYLENE GLYCOL 3350 119 GM BTL PO SCH ×2 (10:02→21:36)
[2018-02-28] MEDS: DEXTROSE 5%-0.45% SALINE 1,000 ML IV SCH ×2 (10:02→13:27)
[2018-02-28] MEDS: SODIUM CHLORIDE 1,000 ML IV SCH (10:02)
--- NOTE | 2018-02-28 13:00 | PN ---
GI Progress Note Subjective: Placed on clear liquids States feeling better and ready for food Complains of lower back pain MRI/MRCP of abdomen revealed normal appearing pancreas with non-specific perihepatic fluid. [place] vertebral abnormality descibed as possible hemangioma - Objective Vital Signs: Vital Signs Temperature 98.1 F 02/28/18 09:11 Pulse Rate 68 02/28/18 09:11 Respiratory Rate 20 02/28/18 09:11 Blood Pressure 142/87 02/28/18 09:11 O2 Sat by Pulse Oximetry (%) 99 02/28/18 09:00 Constitutional: Calm Eyes: No: Sclera Icterus Cardiovascular: Yes: Regular Rate and Rhythm Respiratory: Yes: CTA Bilaterally Gastrointestinal Inspection: No: Distention ...Auscultate: Yes: Normoactive Bowel Sounds ...Palpate: No: Hepatomegaly, Splenomegaly, Tenderness ...Percussion: No: Tympanitic Edema: No (no le edema) Neurological: Yes: Alert Labs: CBC, BMP 02/28/18 06:30 02/28/18 06:30 INR, PTT INR 0.93 (0.83-1.09) 02/24/18 14:43 Hepatic Panel Total Bilirubin 0.5 mg/dL (0.2-1) 02/25/18 06:50 AST 28 U/L (15-37) 02/25/18 06:50 ALT 27 U/L (13-61) 02/25/18 06:50 Alkaline Phosphatase 89 U/L (45-117) 02/25/18 06:50 Albumin 3.2 g/dl (3.4-5.0) L 02/25/18 06:50 Problem List - Problems (1) Abdominal pain Assessment/Plan: no pain currently Advance diet as tolerated Will need follow-up of vertebral lesion as per PMD. Explained this to Mr. Horn Code(s): R10.9 - UNSPECIFIED ABDOMINAL PAIN Qualifiers: Abdominal location: right upper quadrant Qualified Code(s): R10.11 - Right upper quadrant pain (2) Enlarged prostate Assessment/Plan: W/U per PMD Code(s): N40.0 - BENIGN PROSTATIC HYPERPLASIA WITHOUT LOWER URINRY TRACT SYMP (3) Anemia Assessment/Plan: Imrpoved, normaocytic. guaiac negative. w/u per pmd. Will need colonoscopy as outpatient Code(s): D64.9 - ANEMIA, UNSPECIFIED Qualifiers: Anemia type: unspecified type Qualified Code(s): D64.9 - Anemia, unspecified
--- NOTE | 2018-02-28 15:13 | PN ---
Progress Note, Physician Chief Complaint: no c/o abd pain - Current Medication List Current Medications: Active Medications Acetaminophen (Tylenol -) 650 mg PO Q6H PRN PRN Reason: FEVER Last Admin: 02/27/18 02:55 Dose: 650 mg Al Hydroxide/Mg Hydroxide (Mylanta Oral Suspension -) 30 ml PO BID PRN PRN Reason: DYSPEPSIA Benztropine Mesylate (Cogentin -) 0.5 mg PO DAILY [facility] Last Admin: 02/28/18 10:01 Dose: 0.5 mg Divalproex Sodium (Depakote -) 250 mg PO BID [facility] Last Admin: 02/28/18 10:01 Dose: 250 mg Haloperidol (Haldol -) 5 mg PO BID [facility] Last Admin: 02/28/18 10:01 Dose: 5 mg Heparin Sodium (Porcine) (Heparin -) 5,000 unit SQ TID [facility] Last Admin: 02/28/18 13:35 Dose: 5,000 unit Sodium Chloride (Normal Saline -) 1,000 mls @ 75 mls/hr IV ASDIR [facility] Last Admin: 02/28/18 10:02 Dose: Not Given Dextrose/Sodium Chloride (D5-1/2ns -) 1,000 mls @ 75 mls/hr IV ASDIR [facility] Last Admin: 02/28/18 13:27 Dose: 75 mls/hr Insulin Aspart (Novolog Vial Sliding Scale -) 1 vial SQ ACHS [facility]; Protocol Last Admin: 02/28/18 11:30 Dose: Not Given Metoclopramide HCl (Reglan Injection -) 10 mg IVPUSH Q6H PRN PRN Reason: NAUSEA AND/OR VOMITING Last Admin: 02/27/18 02:47 Dose: 10 mg Pantoprazole Sodium (Protonix -) 40 mg PO DAILY [facility] Polyethylene Glycol (Miralax (For Daily Use) -) 17 gm PO BID [facility] Last Admin: 02/28/18 10:02 Dose: 17 gm Multivit/Folic Acid/Iron ( Vitamins (Sjr) -) 1 tab PO DAILY [facility] Last Admin: 02/28/18 10:01 Dose: 1 tab Trazodone HCl (Desyrel -) 100 mg PO HS [facility] Last Admin: 02/27/18 21:11 Dose: 100 mg - Objective Vital Signs: Vital Signs Temperature 98.1 F 02/28/18 09:11 Pulse Rate 68 02/28/18 09:11 Respiratory Rate 20 02/28/18 09:11 Blood Pressure 142/87 02/28/18 09:11 O2 Sat by Pulse Oximetry (%) 99 02/28/18 09:00 Constitutional: Yes: No Distress, Calm Eyes: Yes: Conjunctiva Clear, EOM Intact HENT: Yes: Atraumatic, Normocephalic Neck: Yes: Supple, Trachea Midline. No: Decreased ROM, Lymphadenopathy, Rigid Cardiovascular: Yes: Regular Rate and Rhythm, S1, S2. No: JVD, Gallop, Murmur Respiratory: Yes: Regular, CTA Bilaterally Gastrointestinal: Yes: Normal Bowel Sounds, Soft Extremities: No: Calf Tenderness Edema: No Peripheral Pulses: Left Doralis Pedis: 2+, Right Dorsalis Pedis: 2+ Neurological: Yes: Alert, Oriented ...Motor Strength: WNL, LUE, LLE, RUE, RLE Labs: CBC, BMP 02/28/18 06:30 02/28/18 06:30 INR, PTT INR 0.93 (0.83-1.09) 02/24/18 14:43 Problem List - Problems (1) Cyclical vomiting syndrome Assessment/Plan: improved advance Po cont protonix and Metoclopramide Code(s): G43.A0 - CYCLICAL VOMITING, NOT INTRACTABLE Qualifiers: Vomiting Intractability: intractable Nausea presence: with nausea Qualified Code(s): G43.A1 - Cyclical vomiting, intractable (2) ARTURO (acute kidney injury) Assessment/Plan: Improved with IV Hydration now at base line Code(s): N17.9 - ACUTE KIDNEY FAILURE, UNSPECIFIED (3) Abdominal pain Assessment/Plan: No raml imaging LFTs are stable evaluated by GI symptoms resolved Code(s): R10.9 - UNSPECIFIED ABDOMINAL PAIN Qualifiers: Abdominal location: right upper quadrant Qualified Code(s): R10.11 - Right upper quadrant pain (4) Alcohol dependence with uncomplicated withdrawal Assessment/Plan: Cont Current management Code(s): F10.230 - ALCOHOL DEPENDENCE WITH WITHDRAWAL, UNCOMPLICATED (5) Nausea & vomiting Assessment/Plan: Improved Code(s): R11.2 - NAUSEA WITH VOMITING, UNSPECIFIED Qualifiers: Vomiting type: projectile vomiting Qualified Code(s): R11.12 - Projectile vomiting (6) Schizoaffective disorder Assessment/Plan: Cont Haldol Trazodone Code(s): F25.9 - SCHIZOAFFECTIVE DISORDER, UNSPECIFIED (7) Pancreatic duct dilated Assessment/Plan: MRCP unrevealing F/U with GI consult Code(s): K86.89 - OTHER SPECIFIED DISEASES OF PANCREAS
--- NOTE | 2018-02-28 15:15 | DS ---
Physical Examination Vital Signs: Vital Signs Temperature 98.1 F 02/28/18 09:11 Pulse Rate 68 02/28/18 09:11 Respiratory Rate 20 02/28/18 09:11 Blood Pressure 142/87 02/28/18 09:11 O2 Sat by Pulse Oximetry (%) 99 02/28/18 09:00 Constitutional: Yes: No Distress, Calm Eyes: Yes: Conjunctiva Clear, EOM Intact HENT: Yes: Atraumatic, Normocephalic Neck: Yes: Supple, Trachea Midline. No: Decreased ROM, Lymphadenopathy, Rigid Cardiovascular: Yes: Regular Rate and Rhythm, S1, S2. No: JVD, Gallop, Murmur Respiratory: Yes: Regular, CTA Bilaterally Gastrointestinal: Yes: Normal Bowel Sounds, Soft Extremities: No: Calf Tenderness Edema: No Peripheral Pulses: Left Doralis Pedis: 2+, Right Dorsalis Pedis: 2+ Neurological: Yes: Alert, Oriented ...Motor Strength: WNL, LUE, LLE, RUE, RLE Labs: CBC, BMP 02/28/18 06:30 02/28/18 06:30 CBC,CMP WBC 8.6 K/mm3 (4.0-10.0) 02/28/18 06:30 RBC 3.54 M/mm3 (4.00-5.60) L 02/28/18 06:30 Hgb 11.0 GM/dL (11.7-16.9) L 02/28/18 06:30 Hct 33.2 % (35.4-49) L 02/28/18 06:30 MCV 93.8 fl (80-96) 02/28/18 06:30 MCH 31.0 pg (25.7-33.7) 02/28/18 06:30 MCHC 33.0 g/dl (32.0-35.9) 02/28/18 06:30 RDW 14.3 % (11.9-15.9) 02/28/18 06:30 Plt Count 217 K/MM3 (134-434) 02/28/18 06:30 MPV 8.1 fl (7.5-11.1) 02/28/18 06:30 Absolute Neuts (auto) 4.9 K/mm3 (1.5-8.0) 02/28/18 06:30 Neutrophils % 56.9 % (42.8-82.8) 02/28/18 06:30 Lymphocytes % 35.8 % (8-40) D 02/28/18 06:30 Monocytes % 6.1 % (3.8-10.2) 02/28/18 06:30 Eosinophils % 0.6 % (0-4.5) D 02/28/18 06:30 Basophils % 0.6 % (0-2.0) 02/28/18 06:30 Nucleated RBC % 0 % (0-0) 02/28/18 06:30 Sodium 137 mmol/L (136-145) 02/28/18 06:30 Potassium 4.5 mmol/L (3.5-5.1) 02/28/18 06:30 Chloride 103 mmol/L (98-107) 02/28/18 06:30 Carbon Dioxide 28 mmol/L (21-32) 02/28/18 06:30 Anion Gap 6 MMOL/L (8-16) L 02/28/18 06:30 BUN 16 mg/dL (7-18) 02/28/18 06:30 Creatinine 1.6 mg/dL (0.55-1.3) H 02/28/18 06:30 Creat Clearance w eGFR 45.27 (>60) 02/28/18 06:30 POC Glucometer 132 UNITS (80-120) 02/28/18 11:27 Random Glucose 103 mg/dL (74-106) 02/28/18 06:30 Hemoglobin A1c % 5.9 % (4.2-6.3) 02/25/18 06:50 Lactic Acid 1.4 mmol/L (0.4-2.0) 02/24/18 15:10 Calcium 8.7 mg/dL (8.5-10.1) 02/28/18 06:30 Phosphorus 3.9 mg/dL (2.5-4.9) 02/28/18 06:30 Magnesium 1.9 mg/dL (1.8-2.4) 02/28/18 06:30 Total Bilirubin 0.5 mg/dL (0.2-1) 02/25/18 06:50 AST 28 U/L (15-37) 02/25/18 06:50 ALT 27 U/L (13-61) 02/25/18 06:50 Alkaline Phosphatase 89 U/L (45-117) 02/25/18 06:50 Creatine Kinase Cancelled 02/24/18 16:12 Creatine Kinase Index 1.3 % (0.0-5.0) 02/24/18 14:43 CK-MB (CK-2) 6.9 ng/mL (0.5-3.6) H 02/24/18 14:43 Troponin I Cancelled 02/24/18 16:12 Total Protein 6.2 g/dl (6.4-8.2) L 02/25/18 06:50 Albumin 3.2 g/dl (3.4-5.0) L 02/25/18 06:50 Lipase 229 U/L (73-393) 02/24/18 14:43 Discharge Summary Reason For Visit: NAUSEA AND VOMITING/ABD PAIN Current Active Problems Anemia (Acute) Cyclical vomiting syndrome (Acute) Enlarged prostate (Acute) Condition: Guarded - Instructions Diet, Activity, Other Instructions: as tolerates Disposition: TRANSFER ACUTE CARE/OTHER HOSP - Home Medications Comprehensive Discharge Medication List: Ambulatory Orders Benztropine Mesylate [Cogentin -] 0.5 mg PO DAILY 02/18/18 Divalproex Sodium [Depakote] 250 mg PO BID 02/18/18 Haloperidol [Haldol -] 5 mg PO BID 02/18/18 traZODone HCL [Trazodone HCl] 100 mg PO HS 02/18/18 Mag Hydrox/Al Hydrox/Simeth [Mylanta Oral Suspension -] 30 ml PO BID PRN cup Pantoprazole Sodium [Protonix -] 40 mg PO DAILY tablet.ec 02/28/18 Polyethylene Glycol 3350 [Miralax 119 gm Btl -] 17 gm PO BID bottle 02/28/18 Thiamine HCl [B-1] 100 mg PO DAILY 30 Days #30 tablet 02/28/18
[2018-02-28] MEDS ORDERED: PT OWN MED DRAWER 7, Y5N ONE (21:20)
[2018-02-28] MEDS ORDERED: traZODone HCL 50 MG TABLET (FP) ONE (21:20)
[2018-02-28] MEDS: traZODone HCL 100 MG TABLET (FP) PO SCH (21:29)
[2018-02-28] MEDS: ACETAMINOPHEN 325 MG TABLET (FP) PO PRN (21:31)
[2018-03-01 00:07] LABS: HBSAG SCREEN Negative (Negative); HEP A AB, IGM Negative (Negative)
[2018-03-01] MEDS ORDERED: MELATONIN 5 MG TABLETS PO ONE (02:04)
[2018-03-01] MEDS: DEXTROSE 5%-0.45% SALINE 1,000 ML IV SCH ×2 (03:15→10:31)
[2018-03-01] MEDS: HEPARIN NA (PORCINE) 5,000 UNITS/ML 1ML VIAL SQ SCH ×2 (05:57→13:15)
[2018-03-01] MEDS: INSULIN SLIDING SCALE (NOVOLOG) 1 VIAL SQ SCH ×2 (06:00→12:07)
[2018-03-01 07:49] LABS: BASO % 0.5 % (0-2.0); EOS % 0.5 % (0-4.5); HEMATOCRIT 33.3 % (35.4-49); HEMOGLOBIN 11.1 GM/dL (11.7-16.9); LYMPH % 34.6 % (8-40); MCH 30.7 pg (25.7-33.7); MCHC 33.3 g/dl (32.0-35.9); MEAN CELL VOLUME 92.5 fl (80-96); MEAN PLT VOLUME 8.4 fl (7.5-11.1); MONO % 4.6 % (3.8-10.2); NEUT % 59.8 % (42.8-82.8); PLATELET COUNT 216 K/MM3 (134-434); RDW 14.5 % (11.9-15.9); WHITE BLOOD COUNT 8.4 K/mm3 (4.0-10.0)
[2018-03-01] MEDS: ACETAMINOPHEN 325 MG TABLET (FP) PO PRN (08:35)
[2018-03-01] MEDS: METOCLOPRAMIDE HCL INJECTION 10 MG/2 ML VIAL IVPUSH PRN (08:35)
[2018-03-01 08:48] LABS: ALBUMIN 3.6 g/dl (3.4-5.0); ALK PHOS 93 U/L (45-117); ANION GAP 9 MMOL/L (8-16); BILIRUBIN,TOTAL 0.7 mg/dL (0.2-1); BLOOD UREA NITROGEN 14 mg/dL (7-18); CALCIUM 9.2 mg/dL (8.5-10.1); CHLORIDE 101 mmol/L (98-107); CO2 26 mmol/L (21-32); CREATININE 1.7 mg/dL (0.55-1.3); GLUCOSE,RANDOM 118 mg/dL (74-106); POTASSIUM 4.4 mmol/L (3.5-5.1); SGOT/AST 13 U/L (15-37); SGPT/ALT 22 U/L (13-61); SODIUM 136 mmol/L (136-145)
[2018-03-01 08:51] VITALS: PULSE 64
[2018-03-01] MEDS ORDERED: PANTOPRAZOLE 40 MG TABLET (FP) PO SCH (10:00)
[2018-03-01] MEDS: DIVALPROEX SODIUM 250 MG TABLET E.C. PO SCH (10:28)
[2018-03-01] MEDS: HALOPERIDOL 5 MG TABLET (FP) PO SCH (10:28)
[2018-03-01] MEDS: PRENATAL VITAMINS W/ FOLIC ACID TABLET (FP) PO SCH (10:28)
[2018-03-01] MEDS: BENZTROPINE MESYLATE 0.5 MG TABLET (FP) PO SCH (10:28)
[2018-03-01] MEDS: POLYETHYLENE GLYCOL 3350 119 GM BTL PO SCH (10:29)
[2018-03-01] MEDS: SODIUM CHLORIDE 1,000 ML IV SCH (10:31)
--- NOTE | 2018-03-01 12:24 | PN ---
Progress Note (short form) - Note Progress Note: Subjective: no abd pain, no vomiting. minimal nausea . feels much better compared to admission Objective: Vital Signs: Last Vital Signs Temp Pulse Resp BP Pulse Ox 98.4 F 64 20 149/95 99 03/01/18 08:51 03/01/18 08:51 03/01/18 08:51 03/01/18 08:51 02/28/18 09:00 Laboratory Results - last 24 hr 02/26/18 02/28/18 02/28/18 07:45 16:47 21:26 WBC RBC Hgb Hct MCV MCH MCHC RDW Plt Count MPV Absolute Neuts (auto) Neutrophils % Lymphocytes % Monocytes % Eosinophils % Basophils % Nucleated RBC % Sodium Potassium Chloride Carbon Dioxide Anion Gap BUN Creatinine Creat Clearance w eGFR POC Glucometer 104 126 Random Glucose Calcium Total Bilirubin AST ALT Alkaline Phosphatase Total Protein Albumin Hep A IgM Ab Confirm Negative Hepatitis A Ab Total Positive H Hep Bs Antigen Negative Hep Bs Antibody Reactive Hep B Core Total Ab Positive H 03/01/18 03/01/18 03/01/18 05:56 06:30 06:30 WBC 8.4 RBC 3.60 L Hgb 11.1 L Hct 33.3 L MCV 92.5 MCH 30.7 MCHC 33.3 RDW 14.5 Plt Count 216 MPV 8.4 Absolute Neuts (auto) 5.0 Neutrophils % 59.8 Lymphocytes % 34.6 Monocytes % 4.6 Eosinophils % 0.5 Basophils % 0.5 Nucleated RBC % 0 Sodium 136 Potassium 4.4 Chloride 101 Carbon Dioxide 26 Anion Gap 9 BUN 14 Creatinine 1.7 H Creat Clearance w eGFR 42.21 POC Glucometer 134 Random Glucose 118 H Calcium 9.2 Total Bilirubin 0.7 AST 13 L ALT 22 Alkaline Phosphatase 93 Total Protein 7.0 Albumin 3.6 Hep A IgM Ab Confirm Hepatitis A Ab Total Hep Bs Antigen Hep Bs Antibody Hep B Core Total Ab 03/01/18 11:23 WBC RBC Hgb Hct MCV MCH MCHC RDW Plt Count MPV Absolute Neuts (auto) Neutrophils % Lymphocytes % Monocytes % Eosinophils % Basophils % Nucleated RBC % Sodium Potassium Chloride Carbon Dioxide Anion Gap BUN Creatinine Creat Clearance w eGFR POC Glucometer 111 Random Glucose Calcium Total Bilirubin AST ALT Alkaline Phosphatase Total Protein Albumin Hep A IgM Ab Confirm Hepatitis A Ab Total Hep Bs Antigen Hep Bs Antibody Hep B Core Total Ab Physical Exam: NAD , ambulating in room with no difficulty, stable on feet . MMM CV: RRR Lungs : CATB Abd: soft, minimal discomfort in all quadrants. , ND , NL BS Ext : no edema imaging : MRI reviewed. Assessment/Plan: 52 y/o man with h/o HTN, HLD, hep B, cocaine, alcohol, and marijuana use who was sent from [facility] after being detoxed fro N/V . he was diagnosed with CVS . He was dc yesterday evening but did not leave as it was too late ( homeless ) 1- Cyclic vomiting syndrome : sx much improved . regular diet 2- ARTURO : improved, he knows of CKD . f/u with renal after dc 3- Normocytic anemia: OB -. f/u with GI as out p t 4- L3 lesion on MRI: f/u with MRI n [address] [facility] as has no PCP dispo : he was dc yesterday. he can leave. Spoke to [facility] Dr. Wang, he will be evaluated for rehab when he gets to [facility] Visit type - Emergency Visit Emergency Visit: Yes ED Registration Date: 02/24/18 Care time: The patient presented to the Emergency Department on the above date and was hospitalized for further evaluation of their emergent condition. - New Patient This patient is new to me today: Yes Date on this admission: 03/01/18 - Critical Care Critical Care patient: No
[2018-03-01 13:14] VITALS: BP 127/87; TEMP 98.8
--- NOTE | 2018-03-02 16:17 | HOSP ---
Subjective - Review of Symptoms Events since last encounter: I was informed by Dr. Ordoñez about the + hep c results ( faxed by [facility]). I called latrell torrez, 3W, and spoke to patient . He was made aware of results and the need for GI follow up and more testing. he understands that untreated hep c is likely to cause cirrhosis. HE has Dr. ordoñez's office and will follow withhim. he also stated he was treated for Hep B in past. He does not have a current GI specialist. Physical Examination Vital Signs: Vital Signs Temperature 98.8 F 03/01/18 13:14 Pulse Rate 64 03/01/18 13:14 Respiratory Rate 20 03/01/18 13:14 Blood Pressure 127/87 03/01/18 13:14 O2 Sat by Pulse Oximetry (%) 99 03/01/18 09:00 Labs: CBC, BMP 03/01/18 06:30 03/01/18 06:30
[2018-03-03 13:34] LABS: HEP B CORE AB, TOT Positive (Negative)
== END 2018-03-01 14:10 | disposition short-term general hospital (02) | DRG 683 ==
LOC: JER 14:12 → JERBED 21:43 → J6S 02-25 00:48
PROVIDERS: ADMIT Internal Medicine; ATTEND Internal Medicine
DX: N17.9 Acute kidney failure, unspecified (principal); B18.1 Chronic viral hepatitis B without delta-agent; F14.20 Cocaine dependence, uncomplicated; F10.230 Alcohol dependence with withdrawal, uncomplicated; G43.A1 Cyclical vomiting, in migraine, intractable; K86.89 Other specified diseases of pancreas; F12.20 Cannabis dependence, uncomplicated; I10 Essential (primary) hypertension; E11.9 Type 2 diabetes mellitus without complications; E78.5 Hyperlipidemia, unspecified; K59.00 Constipation, unspecified; Z91.14 Patient's other noncompliance with medication regimen; D64.9 Anemia, unspecified; E86.0 Dehydration; F25.0 Schizoaffective disorder, bipolar type; F10.20 Alcohol dependence, uncomplicated; N40.0 Benign prostatic hyperplasia without lower urinary tract symptoms; M89.9 Disorder of bone, unspecified
CPT/HCPCS: 36415; 74176-TC; 74181-TC; 76705-TC; 80048; 80053; 80307; 81003; 81015; 82009; 82550; 82553; 82962; 83036; 83605; 83690; 83735; 84100; 84484; 85025; 85610; 86704; 86706; 86708; 86803; 86850; 86900; 86901; 87340; 93005; 93010; 96361; 96374; 99283-25; J1644; J7030; Q9967

== ENCOUNTER 2018-03-01 14:54 | Inpatient (IN) | payer OTHER ==
[2018-03-01 15:06] VITALS: BMI 18.5
[2018-03-01] MEDS ORDERED: P-EPHED 60MG/TRIPROLIDI 2.5MG TABLET PO PRN (15:20)
[2018-03-01] MEDS ORDERED: guaiFENesin/D-METHORPHAN HB 10 ML UNIT-DOSE CUPS PO PRN (15:20)
[2018-03-01] MEDS ORDERED: LOPERAMIDE HCL 2 MG CAPSULE PO PRN (15:20)
[2018-03-01] MEDS ORDERED: MAG HYDROX/AL HYDROX/SIMETH 30 ML UNIT-DOSE CUP PO PRN (15:20)
[2018-03-01] MEDS ORDERED: MAGNESIUM CITRATE 300 ML BOTTLE PO PRN (15:20)
[2018-03-01] MEDS ORDERED: ACETAMINOPHEN 325 MG TABLET (FP) PO PRN (15:20)
[2018-03-01] MEDS ORDERED: MAGNESIUM HYDROX 2400MG/30ML ORAL SUSPENSION 30 ML CUP PO PRN (15:20)
--- NOTE | 2018-03-01 15:20 | HP ---
[facility] Rehab Assess/Revision - Admission History Admitted to Rehab from: Medical/Surgical Date of Admission to Rehab: 03/01/18 - Vital signs Vital Signs: Vital Signs Period Temp Pulse Resp BP Sys/Benavides Pulse Ox Last 24 Hr 98.3 F 65 18 140/95 - Findings Detox History & Physical reviewed: Yes Concur with findings: Yes Comments/Additional Findings: this 32 years old male with alcohol,cocaine marijuana dependence,. seeking rehab,admitted in rehab at [facility] from 02/18/18 to 02/24/18,. dmittetd at [facility] 02/24/18 to 03/01/18. found to have a lesion in l3 need repeat mri in 3 months. patient return for reahab as protocol. clear form [facility] to retrun for rehab Inpatient Rehab Admission - Initial Determination Are CD services needed?: Yes Free of communicable disease: Yes Not in need of hospitalization: Yes - Rehab Admission Criteria Previous failed treatment: Yes Poor recovery environment: Yes Comorbidities: Yes Lacks judgement: No Patient is meeting Inpatient Rehab admission criteria:: Yes
[2018-03-01] MEDS: POLYETHYLENE GLYCOL 3350 119 GM BTL PO SCH (22:07)
[2018-03-01] MEDS: THIAMINE HCL 100 MG TABLET (FP) PO SCH (22:09)
[2018-03-01] MEDS: MELATONIN 5 MG TABLETS PO PRN (22:09)
[2018-03-01] MEDS: DIVALPROEX SODIUM 250 MG TABLET E.C. PO SCH (22:49)
[2018-03-01] MEDS: HALOPERIDOL 5 MG TABLET (FP) PO SCH (22:49)
[2018-03-01] MEDS: traZODone HCL 100 MG TABLET (FP) PO SCH (22:49)
[2018-03-02] MEDS: HALOPERIDOL 5 MG TABLET (FP) PO SCH ×2 (09:08→21:39)
[2018-03-02] MEDS: PANTOPRAZOLE 40 MG TABLET (FP) PO SCH (09:08)
[2018-03-02] MEDS: DIVALPROEX SODIUM 250 MG TABLET E.C. PO SCH ×2 (09:08→21:39)
[2018-03-02] MEDS: PRENATAL VITAMINS W/ FOLIC ACID TABLET (FP) PO SCH (09:08)
[2018-03-02] MEDS: POLYETHYLENE GLYCOL 3350 119 GM BTL PO SCH ×2 (09:09→22:24)
[2018-03-02] MEDS: BENZTROPINE MESYLATE 0.5 MG TABLET (FP) PO SCH (09:11)
[2018-03-02] MEDS: IBUPROFEN 400 MG TABLET (FP) PO PRN ×2 (11:24→21:39)
[2018-03-02] MEDS: traZODone HCL 100 MG TABLET (FP) PO SCH (21:39)
[2018-03-02] MEDS: THIAMINE HCL 100 MG TABLET (FP) PO SCH (21:39)
[2018-03-03] MEDS: PANTOPRAZOLE 40 MG TABLET (FP) PO SCH (10:19)
[2018-03-03] MEDS: HALOPERIDOL 5 MG TABLET (FP) PO SCH ×2 (10:19→21:46)
[2018-03-03] MEDS: PRENATAL VITAMINS W/ FOLIC ACID TABLET (FP) PO SCH (10:19)
[2018-03-03] MEDS: BENZTROPINE MESYLATE 0.5 MG TABLET (FP) PO SCH (10:19)
[2018-03-03] MEDS: DIVALPROEX SODIUM 250 MG TABLET E.C. PO SCH ×2 (10:19→21:46)
[2018-03-03] MEDS: POLYETHYLENE GLYCOL 3350 119 GM BTL PO SCH ×2 (10:20→21:47)
[2018-03-03] MEDS: IBUPROFEN 400 MG TABLET (FP) PO PRN ×2 (10:21→21:47)
--- NOTE | 2018-03-03 13:56 | PN ---
Psychiatric Progress Note Vital Signs: Vital Signs Period Temp Pulse Resp BP Sys/Benavides Pulse Ox Last 24 Hr 98.6 F 88 18-18 132/78 Date of Session: 03/02/18 Chief Complaint:: Readmission Note HPI: Patient addressing Alcohol, Cocaine and Cannabis Dependence comorbid with Nicotine Dependence, Schizoaffective Disorder, Substance-Induced Mood Disorder and Substance-Induced Sleep Disorder ROS: Anemia, HTN, DM, Eczema, HepB, Colitis, Arthritis. Current Medications: Active Medications Generic Name Dose Route Start Last Admin Trade Name Freq PRN Reason Stop Dose Admin Acetaminophen 650 mg 03/01/18 15:20 03/02/18 09:14 Tylenol - PO 650 mg Q4H PRN Administration FEVER Al Hydroxide/Mg Hydroxide 30 ml 03/01/18 15:20 Mylanta Oral Suspension - PO Q6H PRN DYSPEPSIA Benztropine Mesylate 0.5 mg 03/02/18 10:00 03/03/18 10:19 Cogentin - PO 0.5 mg DAILY JAC Administration Divalproex Sodium 250 mg 03/01/18 22:45 03/03/18 10:19 Depakote - PO 250 mg BID JAC Administration Eucalyptus/Menthol/Phenol/Sorbitol 1 each 03/01/18 15:20 Cepastat Lozenge - MM Q4H PRN SORE THROAT Guaifenesin 10 ml 03/01/18 15:20 Robitussin Dm - PO Q6H PRN COUGH Haloperidol 5 mg 03/01/18 22:45 03/03/18 10:19 Haldol - PO 5 mg BID JAC Administration Hydroxyzine Pamoate 50 mg 03/01/18 15:20 Vistaril - PO Q4H PRN AGITATION Ibuprofen 400 mg 03/01/18 15:20 03/03/18 10:21 Motrin - PO 400 mg Q6H PRN Administration Pain Level 4-6 Loperamide HCl 4 mg 03/01/18 15:20 Imodium - PO Q6H PRN DIARRHEA Magnesium Citrate 300 ml 03/01/18 15:20 Citroma - PO Q48H PRN CONSTIPATION Magnesium Hydroxide 30 ml 03/01/18 15:20 Milk Of Magnesia - PO DAILY PRN CONSTIPATION Melatonin 5 mg 03/01/18 22:00 03/01/18 22:09 Melatonin PO 5 mg HS PRN Administration INSOMNIA Pantoprazole Sodium 40 mg 03/02/18 10:00 03/03/18 10:19 Protonix - PO 40 mg DAILY JAC Administration Polyethylene Glycol 17 gm 03/01/18 22:00 03/03/18 10:20 Miralax (For Daily Use) - PO 17 grams BID JAC Administration Multivit/Folic Acid/Iron 1 tab 03/02/18 10:00 03/03/18 10:19 Vitamins (Sjr) - PO 1 tab DAILY JAC Administration Pseudoephedrine/Triprolidine 1 combo 03/01/18 15:20 Actifed - PO TID PRN NASAL CONGESTION Thiamine HCl 100 mg 03/01/18 22:00 03/02/18 21:39 Vitamin B1 - PO 100 mg HS JAC Administration Trazodone HCl 100 mg 03/01/18 22:45 03/02/18 21:39 Desyrel - PO 100 mg HS JAC Administration Current Side Effect: No Lab tests ordered: Yes Lab tests reviewed: Yes Provider note:: Patient was admitted to this unit from detox on 02/22/18. on 02/24, he was transferred to [facility] ED for abdominal pain and vomiting. He was admitted to medical unit where he underwent investigative procedure including CT scan amd treatment. He was discharged on 03/01/18 with the diagnosis of "Cyclical vomiting syndrome" and transferred back to this unit to complete his inpatient rehabilitation. Total face to face time:: 25 Mental Status Exam - Mental Status Exam Alert and Oriented to: Time, Place, Person Cognitive Function: Fair Patient Appearance: Well Groomed Mood: Hopeful, Euthymic Affect: Appropriate Patient Behavior: Cooperative Speech Pattern: Clear Voice Loudness: Normal Thought Process: Intact, Goal Oriented Thought Disorder: Not Present Hallucinations: Denies Suicidal Ideation: Denies Homicidal Ideation: Denies Insight/Judgement: Fair Sleep: Fair, Poorly Appetite: Good Muscle strength/Tone: Normal Gait/Station: Normal Psychiatric Treatment Plan - Problem List (1) Alcohol dependence Current Visit: Yes (2) Cocaine dependence Current Visit: No (3) Cannabis dependence Current Visit: No (4) Nicotine dependence Current Visit: No (5) Schizoaffective disorder Current Visit: No (6) Substance induced mood disorder Current Visit: No (7) Substance-induced sleep disorder Current Visit: Yes (8) Cyclical vomiting syndrome Current Visit: No Qualifiers: Vomiting Intractability: intractable Nausea presence: with nausea Qualified Code(s): G43.A1 - Cyclical vomiting, intractable (9) Eczema Current Visit: No Qualifiers: (10) Enlarged prostate Current Visit: No (11) HTN (hypertension) Current Visit: No Qualifiers: Comment: NO MED MGMT (12) Primary generalized (osteo)arthritis Current Visit: No (13) Type 2 diabetes mellitus Current Visit: No (14) Colitis Current Visit: No (15) History of anemia Current Visit: No (16) Murmur Current Visit: No Initial treatment plan: 1) Haldol 5 mg po BID, Cogentin 0.5 mg po BID, Depakote 250 mg po BID and Trazodone 100 mg po HS. 2) Monitor progress
[2018-03-03] MEDS: THIAMINE HCL 100 MG TABLET (FP) PO SCH (21:46)
[2018-03-03] MEDS: traZODone HCL 100 MG TABLET (FP) PO SCH (21:46)
[2018-03-04] MEDS ORDERED: PT OWN MED DRAWER 7, Y5N ONE (08:56)
[2018-03-04] MEDS: HALOPERIDOL 5 MG TABLET (FP) PO SCH ×2 (10:13→22:18)
[2018-03-04] MEDS: BENZTROPINE MESYLATE 0.5 MG TABLET (FP) PO SCH (10:13)
[2018-03-04] MEDS: DIVALPROEX SODIUM 250 MG TABLET E.C. PO SCH ×2 (10:14→22:18)
[2018-03-04] MEDS: PRENATAL VITAMINS W/ FOLIC ACID TABLET (FP) PO SCH (10:14)
[2018-03-04] MEDS: IBUPROFEN 400 MG TABLET (FP) PO PRN ×2 (10:14→22:17)
[2018-03-04] MEDS: POLYETHYLENE GLYCOL 3350 119 GM BTL PO SCH ×2 (10:14→22:18)
[2018-03-04] MEDS: PANTOPRAZOLE 40 MG TABLET (FP) PO SCH (10:14)
[2018-03-04] MEDS: THIAMINE HCL 100 MG TABLET (FP) PO SCH (22:17)
[2018-03-04] MEDS: traZODone HCL 100 MG TABLET (FP) PO SCH (22:17)
[2018-03-04] MEDS: MELATONIN 5 MG TABLETS PO PRN (22:18)
[2018-03-05] MEDS: HALOPERIDOL 5 MG TABLET (FP) PO SCH ×2 (10:19→22:09)
[2018-03-05] MEDS: DIVALPROEX SODIUM 250 MG TABLET E.C. PO SCH ×2 (10:19→23:30)
[2018-03-05] MEDS: PRENATAL VITAMINS W/ FOLIC ACID TABLET (FP) PO SCH (10:19)
[2018-03-05] MEDS: BENZTROPINE MESYLATE 0.5 MG TABLET (FP) PO SCH (10:19)
[2018-03-05] MEDS: PANTOPRAZOLE 40 MG TABLET (FP) PO SCH (10:20)
[2018-03-05] MEDS: POLYETHYLENE GLYCOL 3350 119 GM BTL PO SCH ×2 (10:20→22:11)
[2018-03-05] MEDS: IBUPROFEN 400 MG TABLET (FP) PO PRN ×2 (10:21→22:09)
[2018-03-05] MEDS: traZODone HCL 100 MG TABLET (FP) PO SCH (22:09)
[2018-03-05] MEDS: THIAMINE HCL 100 MG TABLET (FP) PO SCH (22:12)
[2018-03-06] MEDS: BENZTROPINE MESYLATE 0.5 MG TABLET (FP) PO SCH (09:29)
[2018-03-06] MEDS: PRENATAL VITAMINS W/ FOLIC ACID TABLET (FP) PO SCH (09:29)
[2018-03-06] MEDS: HALOPERIDOL 5 MG TABLET (FP) PO SCH ×2 (09:29→23:58)
[2018-03-06] MEDS: PANTOPRAZOLE 40 MG TABLET (FP) PO SCH (09:29)
[2018-03-06] MEDS: POLYETHYLENE GLYCOL 3350 119 GM BTL PO SCH ×2 (09:29→23:57)
[2018-03-06] MEDS: DIVALPROEX SODIUM 250 MG TABLET E.C. PO SCH ×2 (09:29→23:58)
[2018-03-06] MEDS: IBUPROFEN 400 MG TABLET (FP) PO PRN ×2 (09:31→21:34)
[2018-03-06] MEDS: THIAMINE HCL 100 MG TABLET (FP) PO SCH (21:33)
[2018-03-06] MEDS: traZODone HCL 100 MG TABLET (FP) PO SCH (21:33)
[2018-03-07] MEDS ORDERED: PT OWN MED DRAWER 7, Y5N ONE (09:05)
[2018-03-07] MEDS: HALOPERIDOL 5 MG TABLET (FP) PO SCH ×2 (10:44→21:40)
[2018-03-07] MEDS: PANTOPRAZOLE 40 MG TABLET (FP) PO SCH (10:44)
[2018-03-07] MEDS: BENZTROPINE MESYLATE 0.5 MG TABLET (FP) PO SCH (10:45)
[2018-03-07] MEDS: POLYETHYLENE GLYCOL 3350 119 GM BTL PO SCH ×2 (10:45→21:41)
[2018-03-07] MEDS: PRENATAL VITAMINS W/ FOLIC ACID TABLET (FP) PO SCH (10:45)
[2018-03-07] MEDS: DIVALPROEX SODIUM 250 MG TABLET E.C. PO SCH ×2 (10:45→21:40)
[2018-03-07] MEDS: IBUPROFEN 400 MG TABLET (FP) PO PRN ×2 (10:46→21:43)
[2018-03-07] MEDS: THIAMINE HCL 100 MG TABLET (FP) PO SCH (21:39)
[2018-03-07] MEDS: traZODone HCL 100 MG TABLET (FP) PO SCH (21:40)
[2018-03-07] MEDS: MELATONIN 5 MG TABLETS PO PRN (21:40)
[2018-03-08] MEDS: HALOPERIDOL 5 MG TABLET (FP) PO SCH ×2 (10:11→21:30)
[2018-03-08] MEDS: PRENATAL VITAMINS W/ FOLIC ACID TABLET (FP) PO SCH (10:11)
[2018-03-08] MEDS: POLYETHYLENE GLYCOL 3350 119 GM BTL PO SCH ×2 (10:11→21:29)
[2018-03-08] MEDS: BENZTROPINE MESYLATE 0.5 MG TABLET (FP) PO SCH (10:11)
[2018-03-08] MEDS: PANTOPRAZOLE 40 MG TABLET (FP) PO SCH (10:11)
[2018-03-08] MEDS: DIVALPROEX SODIUM 250 MG TABLET E.C. PO SCH ×2 (10:11→21:30)
[2018-03-08] MEDS: IBUPROFEN 400 MG TABLET (FP) PO PRN ×2 (10:12→21:32)
[2018-03-08] MEDS ORDERED: FLU VACCINE QUAD 60 MCG/0.5 ML (MDV 18-19) IM ONE (12:00)
[2018-03-08] MEDS ORDERED: PT OWN MED DRAWER 7, Y5N ONE (20:03)
[2018-03-08] MEDS: THIAMINE HCL 100 MG TABLET (FP) PO SCH (21:29)
[2018-03-08] MEDS: traZODone HCL 100 MG TABLET (FP) PO SCH (21:30)
[2018-03-08] MEDS: MELATONIN 5 MG TABLETS PO PRN (21:32)
[2018-03-09] MEDS: POLYETHYLENE GLYCOL 3350 119 GM BTL PO SCH ×2 (10:26→21:41)
[2018-03-09] MEDS: DIVALPROEX SODIUM 250 MG TABLET E.C. PO SCH ×2 (10:26→21:40)
[2018-03-09] MEDS: BENZTROPINE MESYLATE 0.5 MG TABLET (FP) PO SCH (10:26)
[2018-03-09] MEDS: PRENATAL VITAMINS W/ FOLIC ACID TABLET (FP) PO SCH (10:26)
[2018-03-09] MEDS: HALOPERIDOL 5 MG TABLET (FP) PO SCH ×2 (10:26→21:40)
[2018-03-09] MEDS: PANTOPRAZOLE 40 MG TABLET (FP) PO SCH (10:26)
--- NOTE | 2018-03-09 13:42 | PN ---
[facility] Progress Note Note: COPY OF EMERGENCY ROOM VISIT NOTE; Patient Name: TIM CHIU Date of : 61 Patient Status: Inpatient Attending Provider: Inga Sellers Date: 03/02/18 16:14 Initialization Date: 03/02/18 16:14 Subjective - Review of Symptoms Events since last encounter: I was informed by Dr. Taylor about the + hep c results ( faxed by [facility]). I called latrell torrez 3W, and spoke to patient . He was made aware of results and the need for GI follow up and more testing. he understands that untreated hep c is likely to cause cirrhosis. HE has Dr. taylor's office and will follow withhim. he also stated he was treated for Hep B in past. He does not have a current GI specialist. ADDENDUM: IN FOLLOWING UP OF ABOVE FINDING, I SPOKE WITH THE ABOVE ATTENDING WELL DR. HEBERT RE: HEP C RESULT BUT WAS STILL AWAITING FOR THE REFLEX RESULT FOLLOWING HEP C DIAGNOSTIC ON 02/26/18. PT DENIED HX OF HEP C. HEP C AB DIAGNOSTIC >11.O HCR RNA PCR W/GENOT RFX - HCV NOT DETECTED IU/ML HCV LIVER FIBROSIS TEST INTERPRETATION--POSITIVE HCV ANTIBODY SCREEN WITHOUT PRESENCE OF HCV RNA IS CONSISTENT WITH A RESOLVED PAST INFECTION OR FALSE POSTIVE HCV ANTIBODY. RECOMMENDATION:CONSIDER REPEAT TESTING AFTER ONE MONTH SEE DETAILED RESULTS IN THE [facility] SYSTEM DURING ER VISIT OF 02/24/18. PLAN:PATIENT WAS SPOKEN TO AND PT WILL FOLLOW UP WITH RECOMMENDATION.
[2018-03-09] MEDS: THIAMINE HCL 100 MG TABLET (FP) PO SCH (21:40)
[2018-03-09] MEDS: traZODone HCL 100 MG TABLET (FP) PO SCH (21:40)
[2018-03-09] MEDS: MELATONIN 5 MG TABLETS PO PRN (21:41)
[2018-03-09] MEDS: IBUPROFEN 400 MG TABLET (FP) PO PRN (21:42)
[2018-03-10] MEDS ORDERED: PT OWN MED DRAWER 7, Y5N ONE ×2 (08:55→20:59)
[2018-03-10] MEDS: HALOPERIDOL 5 MG TABLET (FP) PO SCH ×2 (10:09→21:55)
[2018-03-10] MEDS: DIVALPROEX SODIUM 250 MG TABLET E.C. PO SCH ×2 (10:09→21:55)
[2018-03-10] MEDS: PRENATAL VITAMINS W/ FOLIC ACID TABLET (FP) PO SCH (10:09)
[2018-03-10] MEDS: BENZTROPINE MESYLATE 0.5 MG TABLET (FP) PO SCH (10:09)
[2018-03-10] MEDS: PANTOPRAZOLE 40 MG TABLET (FP) PO SCH (10:09)
[2018-03-10] MEDS: POLYETHYLENE GLYCOL 3350 119 GM BTL PO SCH ×2 (10:10→21:56)
[2018-03-10] MEDS: MELATONIN 5 MG TABLETS PO PRN (21:54)
[2018-03-10] MEDS: THIAMINE HCL 100 MG TABLET (FP) PO SCH (21:54)
[2018-03-10] MEDS: IBUPROFEN 400 MG TABLET (FP) PO PRN (21:55)
[2018-03-10] MEDS: traZODone HCL 100 MG TABLET (FP) PO SCH (21:55)
[2018-03-11] MEDS ORDERED: PT OWN MED DRAWER 7, Y5N ONE ×3 (09:22→22:16)
[2018-03-11] MEDS: PRENATAL VITAMINS W/ FOLIC ACID TABLET (FP) PO SCH (10:29)
[2018-03-11] MEDS: HALOPERIDOL 5 MG TABLET (FP) PO SCH ×2 (10:29→21:45)
[2018-03-11] MEDS: BENZTROPINE MESYLATE 0.5 MG TABLET (FP) PO SCH (10:29)
[2018-03-11] MEDS: POLYETHYLENE GLYCOL 3350 119 GM BTL PO SCH ×2 (10:29→21:47)
[2018-03-11] MEDS: PANTOPRAZOLE 40 MG TABLET (FP) PO SCH (10:29)
[2018-03-11] MEDS: DIVALPROEX SODIUM 250 MG TABLET E.C. PO SCH ×2 (11:06→21:45)
[2018-03-11] MEDS: MELATONIN 5 MG TABLETS PO PRN (21:45)
[2018-03-11] MEDS: traZODone HCL 100 MG TABLET (FP) PO SCH (21:45)
[2018-03-11] MEDS: IBUPROFEN 400 MG TABLET (FP) PO PRN (21:45)
[2018-03-11] MEDS: THIAMINE HCL 100 MG TABLET (FP) PO SCH (21:45)
[2018-03-12] MEDS: HALOPERIDOL 5 MG TABLET (FP) PO SCH ×2 (10:23→21:54)
[2018-03-12] MEDS: POLYETHYLENE GLYCOL 3350 119 GM BTL PO SCH ×2 (10:23→21:55)
[2018-03-12] MEDS: DIVALPROEX SODIUM 250 MG TABLET E.C. PO SCH ×2 (10:23→21:54)
[2018-03-12] MEDS: PANTOPRAZOLE 40 MG TABLET (FP) PO SCH (10:23)
[2018-03-12] MEDS: PRENATAL VITAMINS W/ FOLIC ACID TABLET (FP) PO SCH (10:23)
[2018-03-12] MEDS ORDERED: PT OWN MED DRAWER 7, Y5N ONE (10:24)
[2018-03-12] MEDS: BENZTROPINE MESYLATE 0.5 MG TABLET (FP) PO SCH (10:24)
[2018-03-12] MEDS: traZODone HCL 100 MG TABLET (FP) PO SCH (21:54)
[2018-03-12] MEDS: THIAMINE HCL 100 MG TABLET (FP) PO SCH (21:54)
[2018-03-12] MEDS: MELATONIN 5 MG TABLETS PO PRN (21:54)
[2018-03-13] MEDS: PANTOPRAZOLE 40 MG TABLET (FP) PO SCH (10:19)
[2018-03-13] MEDS: PRENATAL VITAMINS W/ FOLIC ACID TABLET (FP) PO SCH (10:19)
[2018-03-13] MEDS: HALOPERIDOL 5 MG TABLET (FP) PO SCH ×2 (10:19→21:36)
[2018-03-13] MEDS: DIVALPROEX SODIUM 250 MG TABLET E.C. PO SCH ×2 (10:19→21:36)
[2018-03-13] MEDS: BENZTROPINE MESYLATE 0.5 MG TABLET (FP) PO SCH (10:19)
[2018-03-13] MEDS: POLYETHYLENE GLYCOL 3350 119 GM BTL PO SCH ×2 (10:20→21:37)
[2018-03-13] MEDS: traZODone HCL 100 MG TABLET (FP) PO SCH (21:36)
[2018-03-13] MEDS: MELATONIN 5 MG TABLETS PO PRN (21:36)
[2018-03-13] MEDS: THIAMINE HCL 100 MG TABLET (FP) PO SCH (21:36)
[2018-03-14] MEDS: HALOPERIDOL 5 MG TABLET (FP) PO SCH ×2 (10:37→21:58)
[2018-03-14] MEDS: BENZTROPINE MESYLATE 0.5 MG TABLET (FP) PO SCH (10:37)
[2018-03-14] MEDS: PANTOPRAZOLE 40 MG TABLET (FP) PO SCH (10:37)
[2018-03-14] MEDS: PRENATAL VITAMINS W/ FOLIC ACID TABLET (FP) PO SCH (10:37)
[2018-03-14] MEDS: DIVALPROEX SODIUM 250 MG TABLET E.C. PO SCH ×2 (10:37→21:58)
[2018-03-14] MEDS: POLYETHYLENE GLYCOL 3350 119 GM BTL PO SCH ×2 (10:38→22:10)
[2018-03-14] MEDS: MENTHOL/PHENOL 1 EACH UD MM PRN (10:40)
[2018-03-14] MEDS ORDERED: PT OWN MED DRAWER 7, Y5N ONE (20:36)
[2018-03-14] MEDS: traZODone HCL 100 MG TABLET (FP) PO SCH (21:58)
[2018-03-14] MEDS: MELATONIN 5 MG TABLETS PO PRN (21:58)
[2018-03-14] MEDS: THIAMINE HCL 100 MG TABLET (FP) PO SCH (21:58)
[2018-03-15 06:51] VITALS: PULSE 77
[2018-03-15] MEDS: PRENATAL VITAMINS W/ FOLIC ACID TABLET (FP) PO SCH (10:32)
[2018-03-15] MEDS: PANTOPRAZOLE 40 MG TABLET (FP) PO SCH (10:32)
[2018-03-15] MEDS: POLYETHYLENE GLYCOL 3350 119 GM BTL PO SCH ×2 (10:33→22:17)
[2018-03-15] MEDS: HALOPERIDOL 5 MG TABLET (FP) PO SCH ×2 (10:33→22:16)
[2018-03-15] MEDS: DIVALPROEX SODIUM 250 MG TABLET E.C. PO SCH ×2 (10:33→22:16)
[2018-03-15] MEDS: BENZTROPINE MESYLATE 0.5 MG TABLET (FP) PO SCH (10:33)
[2018-03-15] MEDS: MENTHOL/PHENOL 1 EACH UD MM PRN (10:35)
[2018-03-15] MEDS: hydrOXYzine PAMOATE 50 MG CAPSULE (FP) PO PRN ×2 (14:11→22:16)
[2018-03-15] MEDS: MELATONIN 5 MG TABLETS PO PRN (22:16)
[2018-03-15] MEDS: THIAMINE HCL 100 MG TABLET (FP) PO SCH (22:16)
[2018-03-15] MEDS: traZODone HCL 100 MG TABLET (FP) PO SCH (22:16)
[2018-03-16 06:43] VITALS: BP 130/78; TEMP 97.6
[2018-03-16] MEDS: hydrOXYzine PAMOATE 50 MG CAPSULE (FP) PO PRN (10:22)
[2018-03-16] MEDS: DIVALPROEX SODIUM 250 MG TABLET E.C. PO SCH (10:22)
[2018-03-16] MEDS: HALOPERIDOL 5 MG TABLET (FP) PO SCH (10:22)
[2018-03-16] MEDS: BENZTROPINE MESYLATE 0.5 MG TABLET (FP) PO SCH (10:22)
[2018-03-16] MEDS: PANTOPRAZOLE 40 MG TABLET (FP) PO SCH (10:22)
[2018-03-16] MEDS: PRENATAL VITAMINS W/ FOLIC ACID TABLET (FP) PO SCH (10:22)
[2018-03-16] MEDS: POLYETHYLENE GLYCOL 3350 119 GM BTL PO SCH (10:40)
--- NOTE | 2018-03-16 13:45 | PN ---
Psychiatric Progress Note Vital Signs: Vital Signs Period Temp Pulse Resp BP Sys/Benavides Pulse Ox Last 24 Hr 97.6 F 77 18-18 130/78 Date of Session: 03/16/18 Chief Complaint:: Discharge visit HPI: Case of a 52 y/o AA male admitted to [address] for alcohol, cannabis and cocaine dependence co-morbid with Schizoaffective Disorder. Patient has approached staff with a request for his immediate discharge. ROS: Unremarkable. Patient is cognitively intact. Ambulatory. No somatic complaints. Current Medications: Active Medications Generic Name Dose Route Start Last Admin Trade Name Freq PRN Reason Stop Dose Admin Acetaminophen 650 mg 03/01/18 15:20 03/02/18 09:14 Tylenol - PO 650 mg Q4H PRN Administration FEVER Al Hydroxide/Mg Hydroxide 30 ml 03/01/18 15:20 Mylanta Oral Suspension - PO Q6H PRN DYSPEPSIA Benztropine Mesylate 0.5 mg 03/02/18 10:00 03/16/18 10:22 Cogentin - PO 0.5 mg DAILY JAC Administration Divalproex Sodium 250 mg 03/01/18 22:45 03/16/18 10:22 Depakote - PO 250 mg BID JAC Administration Eucalyptus/Menthol/Phenol/Sorbitol 1 each 03/01/18 15:20 03/15/18 10:35 Cepastat Lozenge - MM 1 each Q4H PRN Administration SORE THROAT Guaifenesin 10 ml 03/01/18 15:20 Robitussin Dm - PO Q6H PRN COUGH Haloperidol 5 mg 03/01/18 22:45 03/16/18 10:22 Haldol - PO 5 mg BID JAC Administration Hydroxyzine Pamoate 50 mg 03/01/18 15:20 03/16/18 10:22 Vistaril - PO 50 mg Q4H PRN Administration AGITATION Ibuprofen 400 mg 03/01/18 15:20 03/11/18 21:45 Motrin - PO 400 mg Q6H PRN Administration Pain Level 4-6 Loperamide HCl 4 mg 03/01/18 15:20 Imodium - PO Q6H PRN DIARRHEA Magnesium Citrate 300 ml 03/01/18 15:20 Citroma - PO Q48H PRN CONSTIPATION Magnesium Hydroxide 30 ml 03/01/18 15:20 Milk Of Magnesia - PO DAILY PRN CONSTIPATION Melatonin 5 mg 03/01/18 22:00 03/15/18 22:16 Melatonin PO 5 mg HS PRN Administration INSOMNIA Pantoprazole Sodium 40 mg 03/02/18 10:00 03/16/18 10:22 Protonix - PO 40 mg DAILY JAC Administration Polyethylene Glycol 17 gm 03/01/18 22:00 03/16/18 10:40 Miralax (For Daily Use) - PO 17 grams BID JAC Administration Multivit/Folic Acid/Iron 1 tab 03/02/18 10:00 03/16/18 10:22 Vitamins (Sjr) - PO 1 tab DAILY JAC Administration Pseudoephedrine/Triprolidine 1 combo 03/01/18 15:20 Actifed - PO TID PRN NASAL CONGESTION Thiamine HCl 100 mg 03/01/18 22:00 03/15/18 22:16 Vitamin B1 - PO 100 mg HS JAC Administration Trazodone HCl 100 mg 03/01/18 22:45 03/15/18 22:16 Desyrel - PO 100 mg HS JAC Administration Medication(s) Change(s): None. Prescriptions sent, electronically, to [facility] for haldol 5 mg po bid + cogentin 0.5 mg po daily + trazodone 100 mg po hs + depakote 250 mg po bid (30-day supply for each drug). Side effects/ benefits discussed with the patient in this session. Medications are well tolerated. Mr Horn is in agreement with this plan of care. Current Side Effect: No Lab tests ordered: Yes (valproic acid level ; result will be followed.) Lab tests reviewed: Yes Provider note:: Called to see this patient who has decided to leave the program. Chart reviewed. Labs revisited. Met with the patient for assessment of mental status and to explore his reasons. Mr Horn declares that he feels much better, has learned " a lot " from his stay at [facility] but he has decided to leave because he " misses " his family. Patient states that his needs will be best served by " being close to my nephew and nieces". Noted as well groomed , conversant, calm, cooperative and goal-directed. Markedly improved. Mr Horn declines to reconsider his decision to terminate inpatient rehabilitation care. He is not psychotic, not manic, not a danger to self or others. Medical issues were addressed (see chart for details). Covering medical FILTER TANK TENDER is made aware of patient's discharge. Cleared. Baseline mental status. Discharged today at own request. Mr Horn declines referrals for psychiatric OPD care. Total face to face time:: 35 Mental Status Exam - Mental Status Exam Alert and Oriented to: Time, Place, Person Cognitive Function: Good Patient Appearance: Well Groomed Mood: Hopeful, Euthymic Affect: Appropriate, Normal Range Patient Behavior: Appropriate, Cooperative Speech Pattern: Clear, Appropriate Voice Loudness: Normal Thought Process: Intact, Goal Oriented Thought Disorder: Not Present Hallucinations: Denies Suicidal Ideation: Denies Homicidal Ideation: Denies Insight/Judgement: Fair Sleep: Well Appetite: Good Muscle strength/Tone: Normal Gait/Station: Normal Psychiatric Treatment Plan - Problem List (1) Alcohol dependence Comment: . (2) Cannabis dependence Comment: . (3) Cocaine dependence Comment: . (4) Nicotine dependence Comment: . (5) Schizoaffective disorder Comment: . (7) Insomnia Comment: .
== END 2018-03-16 14:16 | disposition home or self-care (01) | DRG 895 ==
LOC: YASAS 14:54 → Y3W 15:22
PROVIDERS: ADMIT Psychiatry & Neurology Psychiatry; ATTEND Psychiatry & Neurology Psychiatry
PROC: HZ42ZZZ Group Counseling for Substance Abuse Treatment, Cognitive-Behavioral (ICD-10-PCS; principal; 2018-03-01)
DX: F10.20 Alcohol dependence, uncomplicated (principal); F14.20 Cocaine dependence, uncomplicated; F19.282 Other psychoactive substance dependence with psychoactive substance-induced sleep disorder; B18.1 Chronic viral hepatitis B without delta-agent; F12.20 Cannabis dependence, uncomplicated; F17.210 Nicotine dependence, cigarettes, uncomplicated; F25.9 Schizoaffective disorder, unspecified; F19.24 Other psychoactive substance dependence with psychoactive substance-induced mood disorder; E11.9 Type 2 diabetes mellitus without complications; I10 Essential (primary) hypertension; G47.00 Insomnia, unspecified; G43.A1 Cyclical vomiting, in migraine, intractable; L30.9 Dermatitis, unspecified; B18.2 Chronic viral hepatitis C; N40.0 Benign prostatic hyperplasia without lower urinary tract symptoms; M19.90 Unspecified osteoarthritis, unspecified site; R01.1 Cardiac murmur, unspecified; K59.00 Constipation, unspecified; Z59.0 Homelessness
CPT/HCPCS: 36415; 80164; 82962; 90688; G0008